=== PATIENT | female | born 1965 | race Caucasian/White ===

== ENCOUNTER 2016-11-13 17:17 | Inpatient (IN) | payer OTHER ==
[~2016-11-13] VITALS: Ht 152.4 cm; Wt 57.1 kg
[~2016-11-13 17:17] MED LIST: ACET-171 PO; ACET325T51 PO; ASCO100089 PO; CHLO25CA10 PO; ERGO500050 PO; FOLI-52 PO; LORA2TAB PO; OMEG-38 PO; ONDA4TAB9 PO; ONDA8TAB10 PO; OXYC5TAB72 PO; PANT40TA2 PO; PANT40TA3 PO
[2016-11-13 17:33] VITALS: BP 157/77; PULSE 113; RESP 30; O2SAT 96
[2016-11-13] MEDS ORDERED: 0.9% Sodium Chloride 1,000 ML IV ONE ×2 (17:47→18:21)
[2016-11-13] MEDS ORDERED: Albuterol-Ipratropium 3 mL Inhalation Solution NEB ONE (17:50)
[2016-11-13 18:01] VITALS: PULSE 110; RESP 20; O2SAT 92
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
--- NOTE | 2016-11-13 18:12 | DRSVH ---
PROCEDURE: X-RAY CHEST ONE VIEW, PORTABLE ([id number]) INDICATIONS: 51 year-old female with cough and fever. TECHNIQUE: One view of the chest was acquired. COMPARISON: [facility], CR, XR CHEST 2VW, 11/13/2016, 9:00. [facility], CR , XR CHEST 1VW (PORTABLE), 11/10/2015, 15:54. [facility], CR, CHEST 1VW, 02/03/2015, 6:43 . FINDINGS: Surgical changes and devices: Patient is status post cholecystectomy. Lungs and pleura: No pleural effusions or pneumothorax. Lungs are clear. Mediastinum: Mediastinal contours appear normal. Heart size is normal. Bones and chest wall: No suspicious bony lesions. Overlying soft tissues appear unremarkable. IMPRESSION: No acute cardiopulmonary disease. Dictated by: Griffin Alejo M.D. on 11/13/2016 at 18:10 Approved by: Griffin Alejo M.D. on 11/13/2016 at 18:10
[2016-11-13 18:15] LABS: BASOPHILS % (AUTO) 0.1 % (0-3); EOSINOPHILS % (AUTO) 0.1 % (0-5); MONOCYTES % (AUTO) 6.2 % (4-12); Mean Corpuscular Hemoglobin 32.3 pg (27.0-35.0); Platelet Count 136 bil/L (150-400)
[2016-11-13] MEDS ORDERED: Albuterol 2.5 mg/3 mL Inhalation Solution NEB ONE (18:25)
--- NOTE | 2016-11-13 18:50 | DRSVH ---
PROCEDURE: X-RAY CHEST ONE VIEW ([id number]) INDICATIONS: 51 year-old female with productive cough, hypoxia and fevers. TECHNIQUE: Lateral view of the chest was acquired. COMPARISON: [facility], CR, XR CHEST 1VW (PORTABLE), 11/13/2016, 17:51. [facility], CR, XR CHEST 2VW, 11/13/2016, 9:00. [facility], CR, XR CHEST 1VW (PORTABLE), 1 01/11/2015, 15:54. FINDINGS: Surgical changes and devices: Cholecystectomy clips are again noted. Lungs and pleura: No pleural effusions or pneumothorax. Lungs are clear. Mediastinum: Mediastinal contours appear normal. Heart size is normal. Bones and chest wall: No suspicious bony lesions. Overlying soft tissues appear unremarkable. IMPRESSION: No radiographic evidence for pneumonia. Dictated by: Griffin Alejo M.D. on 11/13/2016 at 18:48 Approved by: Griffin Alejo M.D. on 11/13/2016 at 18:48
[2016-11-13 18:59] LABS: TROPONIN T < 0.010 ug/L (0.0-0.011)
[2016-11-13 20:08] LABS: APPEARANCE,URINE CLEAR (CLEAR,HAZY); COLOR,URINE STRAW (YELLOW); OCCULT BLOOD,URINE NEGATIVE (NEGATIVE); UROBILINOGEN,URINE NORMAL (NORMAL)
[2016-11-13] MEDS ORDERED: HYDROmorphone 0.5 mg/0.5 mL iSecure Syringe IVPUSH ONE (20:15)
[2016-11-13 21:16] VITALS: BP 138/76; PULSE 93; RESP 18; O2SAT 93
[2016-11-13 21:39] VITALS: BP 132/84; PULSE 95; RESP 20; O2SAT 92
[2016-11-13] MEDS ORDERED: 0.9% Sodium Chloride 1,000 ML IV SCH (21:46)
[2016-11-13] MEDS ORDERED: Alum-Mag Hydrox-Simeth 30 mL Suspension PO PRN (21:50)
[2016-11-13] MEDS ORDERED: Polyethylene Glycol (PEG) 17 Gm Powder PO PRN (21:50)
[2016-11-13] MEDS ORDERED: Thiamine Inj 100 MG, Folic Acid Inj 1 MG, Magnesium Sulfate 50% Inj 2 GM, Multivitamins... IV ONE ×5 (22:05)
[2016-11-13] MEDS ORDERED: Thiamine Inj 100 MG in 0.9% Sodium Chloride 50 ML IM ONE (22:05)
[2016-11-13] MEDS ORDERED: Thiamine Inj 100 MG in 0.9% Sodium Chloride 100 ML IM ONE (22:40)
[2016-11-13] MEDS ORDERED: Thiamine Inj 100 MG in 0.9% Sodium Chloride 100 ML IV ONE (22:40)
[2016-11-13] MEDS: 0.9% Sodium Chloride 1,000 ML IV SCH (22:49)
[2016-11-13] MEDS: Albuterol-Ipratropium 3 mL Inhalation Solution NEB SCH (23:01)
[2016-11-13 23:03] VITALS: PULSE 94; RESP 24; O2SAT 92
[2016-11-13] MEDS: cefTRIAXone Inj 2,000 MG in IV Premix 1 EACH IV SCH (23:16)
[2016-11-13] MEDS: HYDROmorphone 0.5 mg/0.5 mL iSecure Syringe IVPUSH PRN (23:26)
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
--- NOTE | 2016-11-13 23:59 | ABG ---
DateTimeAnalyzed 23:53:00 -_ pH ____7.466 - pCO2 ___31.6__ -mmHg pO2 ___48.9__ -mmHg HCO3- ___22.5__ -mmol/L ABE ___-0.2__ -mmol/L tHb ___10.9__ -g/dL O2Hb ___83.8__ -% COHb ____1.8__ -% MetHb ____1.0__ -% sO2 ___86.2__ -% FIO2 ___30.0__ -% Drawn By MT - Date/Time Notified____ 23:58:00 -_ Liter_Flow ____3.0__ -L/min Oxygen Device 1 __CANNULA - Notified By MT - Notified Whom RN Navya - B 750 -mmHg tO2 ___12.8__ -Vol% Crow test N/A -
[2016-11-14] VITALS (14 sets, daily range): BP systolic 124–164; BP diastolic 68–96; PULSE 58–98; RESP 18–24; O2SAT 88–95
[2016-11-14 00:08] LABS: BASOPHILS % (AUTO) 0 % (0-3); EOSINOPHILS % (AUTO) 0 % (0-5); Mean Corpuscular Hemoglobin 31.4 pg (27.0-35.0); Mean Corpuscular Volume 93.6 fL (81-100); Platelet Count 107 bil/L (150-400)
[2016-11-14 00:24] LABS: INR 1.08 ratio
[2016-11-14 00:32] LABS: MONOCYTES % (AUTO) 10 % (4-12); NEUTROPHILS % (AUTO) 75 % (40-74)
[2016-11-14] MEDS: Sodium Chloride LOK Flush 10 mL Syringe IVFLUSH SCH ×3 (00:40→15:55)
[2016-11-14 00:42] LABS: Phosphorus 1.9 mg/dL (2.5-4.9); TROPONIN T 0.01 ug/L (0.0-0.011)
[2016-11-14 01:06] LABS: Magnesium 1.2 mg/dL (1.6-2.6)
[2016-11-14] MEDS ORDERED: MAG SULF IV ONE (01:20)
[2016-11-14] MEDS: Heparin 5,000 Unit/mL Inj SUBQ SCH ×3 (02:33→15:59)
[2016-11-14] MEDS: HYDROmorphone 0.5 mg/0.5 mL iSecure Syringe IVPUSH PRN ×2 (02:33→08:11)
[2016-11-14] MEDS: Azithromycin Inj 500 MG in Dextrose 5% w/Vial Mate 250 ML IV SCH ×2 (02:33→20:17)
[2016-11-14] MEDS: MethylprednisoLONE Sodium Succinate 40 mg/mL Inj IVPUSH SCH ×2 (02:33→10:19)
[2016-11-14] MEDS: Albuterol-Ipratropium 3 mL Inhalation Solution NEB SCH ×5 (03:54→20:59)
--- NOTE | 2016-11-14 04:54 | NUR ---
Patient [place] [facility] [place] 2245 alert and orientedx4 able to make needs known, states pain is 8/10. Dilaudid and Toradol in ER were slightly ineffective. IVF infusing. patient coughing thick lewis,green sputum up. lungs sound coarse throughout. patient on 2L via NC. MD notified of patient pain. MD ordered Dilaudid IV. RT up to give patient neb treatment. Patient was given 0.5mg IV Dilaudid. patient reports pain medication slightly effective. admissions assessment completed. Patient reports last drink was September 27. Patient CIWA 1 at this time. Patient reports recent deaths in family and is requesting grieving counselor if possible. note left for social work therapist. will continue to monitor.
[2016-11-14] MEDS: 0.9% Sodium Chloride 1,000 ML IV SCH ×3 (08:00→20:15)
[2016-11-14] MEDS: Multivit-Miner-Folic Acid-Iron Tablet PO SCH (09:01)
--- NOTE | 2016-11-14 09:26 | DRSVH ---
PROCEDURE: X-RAY CHEST, TWO VIEWS ([id number]) INDICATIONS: possible pneumonia TECHNIQUE: 2 views of the chest were acquired. COMPARISON: [facility], CR, XR CHEST 2VW, 11/13/2016, 9:00. FINDINGS: Surgical changes and devices: None. Lungs and pleura: No pneumothorax. Trace right-sided pleural fluid collections noted. Focal air spac e opacities have developed in the right upper lobe, right middle lobe and left lower lobe most compat ible with pneumonia. Mediastinum: Mediastinal contours are normal. Heart size is normal. Bones and chest wall: No suspicious bony abnormalities. Soft tissues appear unremarkable. IMPRESSION: Bilateral pneumonia. Dictated by: Carole Gibson MD, PhD on 11/14/2016 at 9:24 Approved by: Carole Gibson MD, PhD on 11/14/2016 at 9:24
[2016-11-14] MEDS ORDERED: HYDROcodone-APAP 5-325 mg Tablet PO PRN (12:05)
--- NOTE | 2016-11-14 15:00 | PCM.PNMED ---
Subjective Date of Service Nov 14, 2016 Subjective Feeling about the same today. Still short of breath and requiring oxygen. No chest pain, nausea vomiting, diarrhea or constipation. Exam Vital Signs Vital Sign - Last Date Time Temp Pulse Resp B/P Pulse Ox O2 Delivery O2 Flow Rate FiO2 11/14/16 13:05 98 18 88 Room Air 11/14/16 12:49 37.2 164/96 2.00 Intake and Output 11/13/16 11/13/16 11/14/16 Cumulative From/Thru 15:00 23:00 07:00 11/13/16 17:33 - 11/14/16 06:30 Intake Total 2000 ml 300 ml 2300 ml Output Total 450 ml 450 ml Balance 2000 ml -150 ml 1850 ml Intake Oral 300 ml 300 ml IV Total 2000 ml 2000 ml Output Urine Total 450 ml 450 ml Exam General: Alert, Oriented X3, NAD Head: Normocephalic, atraumatic Eyes: LAURA, EOMI, no scleral Icterus Chest: Coarse breath sounds noted throughout. Heart: Regular rate and rhythm. Normal S1, S2, no murmurs noted Abdomen: soft, non-tender. Bowel sounds are normoactive. No guarding or rebound. Extremities: no cyanosis, clubbing or edema. IVs and Medications Medications Reviewed: Medications were reviewed in detail Lab and Diagnostics Result Diagram: 11/13/16234911/13/162349 Microbiology RUN DATE: 11/13/16 [facility] LAB LIVE PAGE 1 RUN TIME: 1856 Specimen Inquiry PHYSICIAN Name: MALICK SUAREZ Age/Sex: 51/F Attend Dr: Georgi Higgins DO Acct: [id number] Unit: [id number] Status: REG ER Location: SED Re11/13/16 Disch: Specimen: [id number] Collected: 11/13/16 Status: COMP Req#: [id number] Received: 11/13/16 Source: NOSE Sp Desc : Subm Dr: Milton Jones MD Ordered: RAPID FLU IRS Comments: Collected by Nurse/Unit? Y/N Y Procedure Result Verified Site Microbiology JUAN INFLUENZA RAPID AG SCREEN Final 11/13/16 RESULT POSITIVE FOR FLU A NEGATIVE FOR FLU B TIME CALLED: 1852 FLOOR/DOCTOR: TRENA X-Rays, CTs and MRIs Patient Name: MAILCK SUAREZ MR#: [id number] Location: SED Ordering Phys: Georgi Higgins DO Date of Service: 11/13/161818 PROCEDURE: X-RAY CHEST ONE VIEW ([id number]) IMPRESSION: No radiographic evidence for pneumonia. Dictated by: Griffin Alejo M.D. on 11/13/2016 at 18:48 Approved by: Griffin Alejo M.D. on 11/13/2016 at 18:48 CXR 11/14/2016 IMPRESSION: Bilateral pneumonia. Dictated by: Carole Gibson MD, PhD on 11/14/2016 at 9:24 Approved by: Carole Gibson MD, PhD on 11/14/2016 at 9:24 12-lead ECG Sinus rhythm at a rate of 102 with possible left atrial enlargement Assessment & Plan #Pneumonia -Repeat chest x-ray consistent with bilateral pneumonia. -azithromycin and IV Rocephin, sputum cultures pending -DuoNeb nebs every 4 hours and albuterol nebs when necessary -Was started on Solu-Medrol, no wheezing noted on today's exam. We will discontinue steroids. Restart if indicated # Influenza A with significant respiratory symptoms including acute hypoxia, acute, present on admission -Continue Tamiflu 75 mg by mouth twice a day # Sepsis secondary to respiratory source, acute, present on admission -Patient meets criteria by being tachycardic along with having significantly elevated white count of 19.3. -We will cover for influenza A with Tamiflu along with IV azithromycin and IV Rocephin for pneumonia. # Alcohol withdrawal, acute, present on admission -States that she has not drank since September -She is on CIWA protocol # Abnormal liver enzymes, present on admission, appears to be acute -Most likely secondary to EtOH abuse -We will monitor. # DVT prophylaxis -Subcutaneous heparin # CODE STATUS -Patient is full code GI Prophylaxis: H2 kathy VTE Prophylaxis: Sub-Q Heparin (Unfractionated) VTE Mechanical Devices: Intermittant Pneumatic CD Resuscitation Status: CPR: Attempt Resuscitation Mynor Garcia DO Nov 14, 2016 15:00
--- NOTE | 2016-11-14 16:31 | NUR ---
Social Work-screening: Data:Pt is a 51 y/o female who was admitted on 11/13/16 for influenza A per H&P. Pt's insurance is [facility] and PCP is ISIDRO Rasheed. EMR Reviewed. Pt's readmission score is 4-high risk. Pt resides at home where she remains independent with ADLS. SW to follow up with pt when more appropriate to complete CD assessment. Pt is currently on CIWA protocol. No anticipated discharge needs.SW will continue to follow. Assessment:Pt who is independent at baseline. Plan:Pt to discharge home when medically stable via POV. SW to follow up with pt when more appropriate to complete CD assessment. SW will continue to follow. DOMENIC Higuera
--- NOTE | 2016-11-14 18:49 | NUR ---
Pain Pt c/o pain of 7 or 8/10 in back and lungs. Pt continued to report these numbers despite administration of different pain medications.
[2016-11-14] MEDS: Ondansetron 2 mg/mL 2 mL Inj IVPUSH PRN (21:27)
[2016-11-15] VITALS (17 sets, daily range): BP systolic 143–173; BP diastolic 80–98; PULSE 66–97; RESP 18–26; O2SAT 88–98
[2016-11-15] MEDS: Heparin 5,000 Unit/mL Inj SUBQ SCH ×3 (00:05→16:24)
[2016-11-15] MEDS: cefTRIAXone Inj 2,000 MG in IV Premix 1 EACH IV SCH ×2 (00:05→23:40)
[2016-11-15] MEDS: Sodium Chloride LOK Flush 10 mL Syringe IVFLUSH SCH ×3 (00:06→16:24)
[2016-11-15] MEDS: Albuterol-Ipratropium 3 mL Inhalation Solution NEB SCH ×6 (00:30→21:14)
[2016-11-15] MEDS: Albuterol 2.5 mg/3 mL Inhalation Solution NEB PRN (01:48)
--- NOTE | 2016-11-15 01:54 | NUR ---
Oxygen: Pt has been on 2L NC maintaining sats in the mid 90s thus far this shift. Pt took the oxygen off and got up to the bathroom independently. Staff was in room upon her return to bed and found pt's sats to be 85%, placing the oxygen cannula back on pt. Oxygen was increased to 3L. Pt stated not feeling short of breath, RN recommended a neb treatment, pt did not think it was necessary but agreed. Receiving a treatment at this time. Addendum: 11/15/16 at 0241 by FRANCINE PRETTY RN Sats continue to be low to med 80s after treatment. Placed on oximask at 10L to brings sats up to 95%. Then decreased to 7L, CPOX in place for continuous monitoring with sats 88-89%. Night resident is on the unit and was informed of pt's condition. Will stop by to see pt prior to leaving unit. Addendum: 11/15/16 at 0320 by FRANCINE PRETTY RN ABGs and chest x-ray ordered. Addendum: 11/15/16 at 0401 by FRANCINE PRETTY RN Pt will be transferring to [facility] for high flow oxygen.
--- NOTE | 2016-11-15 03:45 | ABG ---
DateTimeAnalyzed 03:38:00 -_ pH ____7.446 - 7.350 7.450 pCO2 ___38.5__ -mmHg 35.0 45.0 pO2 ___46.3__ -mmHg 69.0 116 HCO3- ___26.2__ -mmol/L 22.0 26.0 ABE ____2.5__ -mmol/L -2.0 2.0 tHb ___11.0__ -g/dL O2Hb ___82.0__ -% COHb ____0.9__ -% MetHb ____0.9__ -% sO2 ___83.5__ -% FIO2 ___40.0__ -% Drawn By MT - Date/Time Notified____ 03:44:00 -_ Liter_Flow ____8.0__ -L/min Oxygen Device 1 SIMP MASK - Notified By MT - Notified Whom DR gatzke - B 754 -mmHg tO2 ___12.6__ -Vol% Crow test _Positive -
[2016-11-15] MEDS ORDERED: Furosemide 10 mg/mL 2 mL Inj IVPUSH ONE (04:30)
--- NOTE | 2016-11-15 04:40 | PCM.PNMED ---
Subjective Date of Service Nov 15, 2016 Subjective SHORT UPDATED NOTE Exam Vital Signs Vital Sign - Last Date Time Temp Pulse Resp B/P Pulse Ox O2 Delivery O2 Flow Rate FiO2 11/15/16 03:59 66 18 88 OxyMask 8.00 11/15/16 01:32 37.1 147/80 Intake and Output 11/14/16 11/14/16 11/15/16 Cumulative From/Thru 15:00 23:00 07:00 11/13/16 17:33 - 11/14/16 18:40 Intake Total 4228 ml 6528 ml Output Total 650 ml 1100 ml Balance 3578 ml 5428 ml Intake Oral 1100 ml 1400 ml IV Total 3128 ml 5128 ml Output Urine Total 650 ml 1100 ml # Bowel Movements 1 1 Lab and Diagnostics Result Diagram: 11/13/16234911/13/162349 Microbiology RUN DATE: 11/13/16 [facility] LAB LIVE PAGE 1 RUN TIME: 1855 Specimen Inquiry PHYSICIAN Name: ERICKMALICK Age/Sex: 51/F Attend Dr: Georgi Higgins DO Acct: [id number] Unit: [id number] Status: REG ER Location: SED Re11/13/16 Disch: Specimen: [id number] Collected: 11/13/16 Status: COMP Req#: [id number] Received: 11/13/16 Source: NOSE Sp Desc : Subm Dr: Milton Jones MD Ordered: RAPID FLU IRS Comments: Collected by Nurse/Unit? Y/N Y Procedure Result Verified Site Microbiology JUAN INFLUENZA RAPID AG SCREEN Final 11/13/16-1855 RESULT POSITIVE FOR FLU A NEGATIVE FOR FLU B TIME CALLED: 185 FLOOR/DOCTOR: TRENA X-Rays, CTs and MRIs Patient Name: MALICK SUAREZ MR#: [id number] Location: [facility] Phys: Georgi Higgins DO Date of Service: 11/13/161818 PROCEDURE: X-RAY CHEST ONE VIEW ([id number]) IMPRESSION: No radiographic evidence for pneumonia. Dictated by: Griffin Alejo M.D. on 11/13/2016 at 18:48 Approved by: Griffin Alejo M.D. on 11/13/2016 at 18:48 CXR 11/14/2016 IMPRESSION: Bilateral pneumonia. Dictated by: Carole Gibson MD, PhD on 11/14/2016 at 9:24 Approved by: Carole Gibson MD, PhD on 11/14/2016 at 9:24 12-lead ECG Sinus rhythm at a rate of 102 with possible left atrial enlargement Assessment & Plan QUICK UPDATED NOTE: Patient was on 2 L by NC. Up to bathroom, but when returned to bed, required 7 L by mask to bring O2 to 88%. Went on for several minutes. Duo Nebs x2. ABG showed abnormal PO2 at 40ish but everything else normal. After 20 minutes, still needing 5 L by mask for O2 of 88% to 90%. Repeat x-ray -- possibly fluid overload? Moved to second floor for high-flow oxygen. Discontinued fluids (has received several liters). Gave 20mg furosemide IV. Wells score 0. Ordered D- dimer. Patient complaining of SOB. Lungs had loud crackles, wheezing, rhonchi B/ L. Using accessory muscles somewhat but speaking in full sentences. . GI Prophylaxis: H2 kathy VTE Prophylaxis: Sub-Q Heparin (Unfractionated) VTE Mechanical Devices: Intermittant Pneumatic CD Resuscitation Status: CPR: Attempt Resuscitation Monica Quintero DO Nov 15, 2016 04:40
--- NOTE | 2016-11-15 04:42 | NUR ---
Transfer: Pt transferred to [facility], report given to DARELL Alvarez. Belongings with pt. Pt on 10L oxymask at transfer with sats 87-89%.
[2016-11-15] MEDS: Ondansetron 2 mg/mL 2 mL Inj IVPUSH PRN ×3 (05:05→23:53)
[2016-11-15 05:31] LABS: BASOPHILS % (AUTO) 0.1 % (0-3); EOSINOPHILS % (AUTO) 0.3 % (0-5); MONOCYTES % (AUTO) 9.3 % (4-12); Mean Corpuscular Hemoglobin 30.9 pg (27.0-35.0); Mean Corpuscular Volume 93.7 fL (81-100); NEUTROPHILS % (AUTO) 82.1 % (40-74); Platelet Count 120 bil/L (150-400)
--- NOTE | 2016-11-15 06:15 | NUR ---
Respiratory Distress Pt transferred [place] [facility] r/t respiratory distress. Pt arrived via hospital bed on 10 L O2 via Oxymask, with SpO2 sats only in the upper 80s. RT placed Pt on O2 High-Flow at 30 L with 50%, SpO2 sats improved to 93-96% per continuous pulse oximetry. Care ongoing.
--- NOTE | 2016-11-15 07:14 | DRSVH ---
PROCEDURE: X-RAY CHEST ONE VIEW, PORTABLE ([id number]) INDICATIONS: 51 year-old female with shortness of breath. TECHNIQUE: One view of the chest was acquired. COMPARISON: [facility], CR, XR CHEST 2VW, 11/14/2016, 8:15. [facility], CR, XR CHEST 1VW, 11/13/2016, 18:27. [facility], CR, XR CHEST 1VW (PORTABLE), 11/13/2016, 17 :51. FINDINGS: Surgical changes and devices: None. Lungs and pleura: No pleural effusions or pneumothorax. Multifocal air space opacities have increase d in the right upper lobe, right lung base, lingula, and bilateral perihilar regions. Mediastinum: Mediastinal contours appear normal. Heart size is normal. Bones and chest wall: No suspicious bony lesions. Overlying soft tissues appear unremarkable. IMPRESSION: Increasing bilateral bronchopneumonia. Dictated by: Griffin Alejo M.D. on 11/15/2016 at 7:12 Approved by: Griffin Alejo M.D. on 11/15/2016 at 7:12
[2016-11-15] MEDS: Multivit-Miner-Folic Acid-Iron Tablet PO SCH (08:56)
[2016-11-15] MEDS ORDERED: MethylprednisoLONE Sodium Succinate 40 mg/mL Inj IM ONE (09:15)
--- NOTE | 2016-11-15 13:23 | NUR ---
Respiratory and CIWA Pt. is currently on high flow O2 (30L/min, FiO2 50%). She is able to speak in full sentences. She is able to transfer [place] [facility] with [facility]. She experiences SOBOE easily. Lung sounds are coarse with rhonchi. She C/O back pain and pleuritic pain which she asked the doctor for PRN Dilaudid IV instead of PRN PO Roxicodone. Doctor explained that she should use oral analgesics. Pt. was cooperative an agreed. CIWA scores 2 to 6. Bilateral tremor of arms was more noticeable after Nebulizer treatment. She denied A/V/T hallucination.
--- NOTE | 2016-11-15 15:22 | DRSVH ---
PROCEDURE: X-RAY CHEST ONE VIEW, PORTABLE ([id number]) INDICATIONS: 51 year-old female with shortness of breath. TECHNIQUE: One view of the chest was acquired. COMPARISON: [facility], CR, XR CHEST 1VW (PORTABLE), 11/15/2016, 3:13. [facility], CR, XR CHEST 2VW, 11/14/2016, 8:15. [facility], CR, XR CHEST 1VW (PORTABLE), 11/13, 17:51. FINDINGS: Surgical changes and devices: None. Lungs and pleura: No pleural effusions or pneumothorax. There is continued interval increase in wide spread bilateral airspace opacities. There is trace dependent left pleural fluid now apparent. No pne umothorax. Mediastinum: Mediastinal contours appear normal. Heart size is normal. Bones and chest wall: No suspicious bony lesions. Overlying soft tissues appear unremarkable. IMPRESSION: Continued interval increase in widespread bilateral bronchopneumonia. Dictated by: Griffin Alejo M.D. on 11/15/2016 at 15:20 Approved by: Griffin Alejo M.D. on 11/15/2016 at 15:20
--- NOTE | 2016-11-15 17:08 | NUR ---
Hypertensive BP been high with SBP 150s-170s. Dr. Keita was made aware.
[2016-11-15] MEDS ORDERED: Glucose 40% Oral Gel 15 Gm Tube PO PRN (18:15)
--- NOTE | 2016-11-15 18:44 | PCM.PNMED ---
Subjective Date of Service Nov 15, 2016 Subjective This is a 51-year-old female who does have a history of smoking but no previous respiratory issues who presents with 4 days of shortness of breath cough along with fevers and chills at home. She was seen in the urgent care earlier this morning and was told she had a negative influenza test. Apparently they thought was a false negative so she was given Tamiflu prednisone and albuterol. However her symptoms worsened and she presented to the emergency room this evening. Her evaluation in the emergency room does include a positive influenza PCR test. Chest x-ray did not reveal any acute infiltrates. She was found to have an elevated white count of 19.3 with 91% polys 2% lymphs. She was also found to have a low sodium of 129, lactic acid level of 1.7. Protein was less than 0.010. She was tachycardic sinus in the emergency room to 113. He was also found to be hypoxic and required 4 L nasal cannula to maintain an O2 sat of 96%. Patient notes that she quit smoking 40 days ago as she thought it was about time to do so. She was not having any symptoms at that time. Also of note she does drink about a fifth of vodka over a period of a week. Currently she is requiring 10 L High Flow to maintain sats. Overnight events: Patient was on 2 L by NC. Up to bathroom, but when returned to bed, required 7 L by mask to bring O2 to 88%. Went on for several minutes. Duo Nebs x2. ABG showed abnormal PO2 at 40ish but everything else normal. After 20 minutes, still needing 5 L by mask for O2 of 88% to 90%. Repeat x-ray -- possibly fluid overload? Moved to second floor for high-flow oxygen. Discontinued fluids (has received several liters). Gave 20mg furosemide IV. Wells score 0. Ordered D-dimer. Patient complaining of SOB. Lungs had loud crackles, wheezing, rhonchi B/L. Using accessory muscles somewhat but speaking in full sentences. Today Ms. Martha Calderon was lying comfortably in bed with high flow O2 in place and effectively managing O2 needs. She denies headache, dizziness, sore throat, chest pain, abdominal pain, nausea, vomiting, constipation, and diarrhea. She is voiding and eliminating without difficulty. She reports painful cough with deep inhalation. Exam Vital Signs Vital Sign - Last Date Time Temp Pulse Resp B/P Pulse Ox O2 Delivery O2 Flow Rate FiO2 11/15/16 12:41 77 18 96 highflow 50 11/15/16 11:54 37.4 153/94 11/15/16 08:41 30 Intake and Output 11/14/16 11/14/16 11/15/16 Cumulative From/Thru 15:00 23:00 07:00 11/13/16 17:33 - 11/15/16 06:20 Intake Total 4228 ml 1450 ml 7978 ml Output Total 650 ml 500 ml 1600 ml Balance 3578 ml 950 ml 6378 ml Intake Oral 1100 ml 0 ml 1400 ml IV Total 3128 ml 1450 ml 6578 ml Output Urine Total 650 ml 500 ml 1600 ml # Voids 2 2 # Bowel Movements 1 1 2 Exam General: Middle aged lady lying in bed with acute distress controlled with High flow O2, well-developed, well-nourished, appropriately interactive HEENT: Normocephalic, atraumatic. External ears without defect. Pupils equal, round, and reactive to light and accommodation. Anicteric sclerae, moist conjunctivae, and no lid lag. Oropharynx free of erythema and cobble stoning with moist mucosa. Neck: Supple with full range of motion. No jugular venous distension. No bruits. No lymphadenopathy or thyromegaly. Cardiovascular: Regular rate and rhythm with no murmurs, rubs, or gallops appreciated Pulmonary: Diffuse prominent fine crackles, without wheezes, or rhonchi. Abnormal respiratory effort with no use of accessory muscles. Abdomen: Bowel tones present. Soft, nontender, nondistended. No hepatosplenomegaly or masses appreciated. Extremities: No clubbing, cyanosis, edema, or lymphadenopathy appreciated. Skin: Normal temperature, turgor, and texture; no rash, ulcers, or subcutaneous nodules appreciated. Neurological: Cranial nerves grossly intact. Normal muscle strength, tone, and bulk. Reflexes, coordination, and sensory function within normal limits. No known gait impairment. Psychiatric: Normal mood and affect. Alert and oriented to person, place, and time. IVs and Medications Medications Reviewed: Medications were reviewed in detail Lab and Diagnostics Result Diagram: 11/15/16 0500 11/15/16 0500 X-Rays, CTs and MRIs X-RAY CHEST ONE VIEW IMPRESSION: No radiographic evidence for pneumonia. Dictated by: Griffin Alejo M.D. on 11/13/2016 at 18:48 X-RAY CHEST ONE VIEW IMPRESSION: Bilateral pneumonia. Dictated by: Carole Gibson MD, PhD on 11/14/2016 at 9:24 12-lead ECG Sinus rhythm at a rate of 102 with possible left atrial enlargement Additional Diagnostics [facility] DateTimeAnalyzed 03:38:00 -_ pH ____7.446 - 7.350 7.450 pCO2 ___38.5__ -mmHg 35.0 45.0 pO2 ___46.3__ -mmHg 69.0 116 HCO3- ___26.2__ -mmol/L 22.0 26.0 Assessment & Plan This is a 51-year-old female who does have a history of smoking but no previous respiratory issues who presents with 4 days of shortness of breath cough along with fevers and chills at home. Her evaluation in the emergency room does include a positive influenza PCR test. Chest x-ray did not reveal any acute infiltrates. She was found to have an elevated white count of 19.3 with 91% polys 2% lymphs. She was also found to have a low sodium of 129, lactic acid level of 1.7. Currently she is requiring 10 L High Flow to maintain sats. 1. ARDS, present on admission. Active. - Possibly underlying COPD exacerbation 2nd to Influenza. - Daily CXR. - Bilateral pulmonary infiltrates. - PO2/FiO2 - 109 = Moderate - ECHO tomorrow to r/o cardiac sources. - High Flow O2 at 10 L. - Pulmonary to be consulted, time and recommendations appreciated. 2. Influenza A with significant respiratory symptoms including acute hypoxia, acute, present on admission - Rapid Influenza screen positive. - Tamiflu 75mgj BID x 5 days. last dose (11/17/15) - Respiratory Viral PCR pending. 3. Superimposed Pneumonia, present on admission, Active. - Procalcitonin - 0.26 on admission, currently 0.37 - Sputum cultures pending. - MRSA screen pending. - Strep pneumo ag, Legionella pneu ab pending. - Azithromycin and IV Rocephin daily for now. - DuoNeb nebs every 4 hours and albuterol nebs when necessary - Solu-Medrol 40 mg daily. 4. Sepsis, present on admission, Active. - Likely 2nd to respiratory source, - On admission criteria met:Tachycardic, tachypneic, Leukocytic 19.3. - Treatment per above. 5. Acute hypoxic respiratory failure, present on admission. Active. - Possibly underlying COPD exacerbation 2nd to Influenza. - Continue to treat per above with high flow O2. - ABGs per above. 6. Alcohol withdrawal, acute, present on admission -States that she has not drank since September -She is on CIWA protocol as needed. 7. Abnormal liver enzymes, present on admission, appears to be acute -Most likely secondary to EtOH abuse -We will monitor. Acetaminophen for mild pain when necessary. Bowel regimen Senna and MiraLAX scheduled and PRN. Zofran when necessary for nausea and vomiting. SubQ heparin for now. SCDs in place. High risk medications: Disposition: Likely here for > 2 days due to ARDS and respiratory failure. Pain Evaluation: Adequate Pain Control GI Prophylaxis: H2 kathy VTE Prophylaxis: Sub-Q Heparin (Unfractionated) VTE Mechanical Devices: Intermittant Pneumatic CD Resuscitation Status: CPR: Attempt Resuscitation Attending Statement The patient was seen and examined together with Dr. Alexander on 11-15-16 and I agree with the history, exam and plan as outlined in the note above. Patient is currently on IV diazepam prn for possible etoh withdrawal. NATASHA ALEXANDER DO Nov 15, 2016 13:52 Regina Smith MD Nov 16, 2016 16:49
[2016-11-15] MEDS ORDERED: Potassium Chloride 20 mEq SR Tablet PO ONE (21:45)
[2016-11-15] MEDS: Insulin LISPRO 300 Unit/3 mL Inj SUBQ SCH (23:56)
[2016-11-16] VITALS (16 sets, daily range): BP systolic 131–157; BP diastolic 81–90; PULSE 70–103; RESP 20–24; O2SAT 91–95
[2016-11-16] MEDS: Sodium Chloride LOK Flush 10 mL Syringe IVFLUSH SCH ×4 (00:30→23:01)
[2016-11-16] MEDS: Heparin 5,000 Unit/mL Inj SUBQ SCH ×4 (00:31→23:05)
--- NOTE | 2016-11-16 02:10 | NUR ---
Transferred Moved to room 2023 [facility], alert and oriented times 3, CIWA 6, noted tremors, O2 high Flow 30L/50%, persistent dry cough, sputum spec needed pt informed, spec cup at bedside.
[2016-11-16 05:36] LABS: BASOPHILS % (AUTO) 0.1 % (0-3); EOSINOPHILS % (AUTO) 0 % (0-5); MONOCYTES % (AUTO) 12.6 % (4-12); Mean Corpuscular Hemoglobin 31.7 pg (27.0-35.0); NEUTROPHILS % (AUTO) 76.7 % (40-74); Platelet Count 167 bil/L (150-400)
[2016-11-16] MEDS ORDERED: Potassium Chloride Oral 20 mEq SR Tab(K 3 - 3.7 & Creat < 2) PO ONE (05:45)
--- NOTE | 2016-11-16 06:09 | NUR ---
Respiratory: PT remains on high flow 30L/ 50%. Sp02 mid 90s. monitored via AREA MANAGER. Sputum cup at bedside. PT has moist cough but reports it being non-productive at this time. CIWA score <5.
[2016-11-16] MEDS: Ondansetron 2 mg/mL 2 mL Inj IVPUSH PRN ×2 (06:40→21:18)
[2016-11-16] MEDS: Albuterol-Ipratropium 3 mL Inhalation Solution NEB SCH ×4 (07:53→20:39)
[2016-11-16] MEDS: Insulin LISPRO 300 Unit/3 mL Inj SUBQ SCH ×5 (08:00→22:58)
--- NOTE | 2016-11-16 08:53 | DRSVH ---
PROCEDURE: X-RAY CHEST ONE VIEW, PORTABLE ([id number]) INDICATIONS: respiratory failure TECHNIQUE: One view of the chest was acquired. COMPARISON: [facility], CR, XR CHEST 1VW (PORTABLE), 11/15/2016, 14:45. [facility], [facility], XR CHEST 1VW (PORTABLE), 11/15/2016, 3:13. [facility], CR, XR CHEST 1VW (PORT ABLE), 11/13/2016, 17:51. FINDINGS: Surgical changes and devices: None. Lungs and pleura: No pleural effusions or pneumothorax. There is decreased, moderate patchy bilatera l multifocal airspace opacities. Mediastinum: Mediastinal contours appear normal. Heart size is normal. Bones and chest wall: No suspicious bony lesions. Overlying soft tissues appear unremarkable. IMPRESSION: Resolving multifocal pneumonia. Dictated by: Randall Potter M.D. on 11/16/2016 at 8:51 Approved by: Randall Potter M.D. on 11/16/2016 at 8:51
--- NOTE | 2016-11-16 09:00 | DRSVH ---
PROCEDURE: CT ANGIO CHEST PULMONARY EMBOLISM ([id number]) INDICATIONS: respiratory failure TECHNIQUE: After the administration of intravenous contrast, 2 mm thick sections acquired from the pulmonary api maury to the posterior costophrenic angles. 3-dimensional maximum intensity projection (MIP) coronal a nd sagittal reformats were then acquired through the thorax. For radiation dose reduction, the follo wing was used: automated exposure control, adjustment of mA and/or kV according to patient size. COMPARISON: [facility], CT, CT ABD PELVIS W CON, 09/14/2016, 17:59. Rona Sifuentes, MR, MR LUMBAR SPINE WO CON, 04/15/2016, 10:17. [facility], CT, CT ANGIO CHEST PE, 015, 17:46. FINDINGS: Image quality: Excellent. Pulmonary arteries: Pulmonary arteries are normal in size, and demonstrate no intraluminal filling d efects to suggest central pulmonary embolism. Lungs and pleura: Patchy airspace opacities are present throughout both lungs most confluent at the r ight apex. There is small bilateral low density pleural effusions. No pneumothorax. These findings ar e new when compared with the CT dated 09/14/16. Mediastinum: Heart size is normal, without pericardial effusion. No mediastinal or hilar adenopathy . Thoracic aorta is normal in caliber and enhancement. Scattered atheromatous calcifications are pre sent within the aortic arch. Esophagus is normal in caliber, without hiatal hernia. Bones and chest wall: No suspicious bony lesions. Ribs and thoracic spine appear intact throughout. Thyroid gland is unremarkable. No axillary or supraclavicular adenopathy. Abdomen: Visualized upper abdominal solid organs appear normal in the early arterial phase of enhanc ement. IMPRESSION: 1. No acute pulmonary embolus. 2. Diffuse patchy pulmonary opacities most confluent at the right apex. Differential considerations i nclude multifocal pneumonia versus aspiration. 3. Small bilateral pleural effusions, likely reactive/infectious in nature. Short interval followup is recommended with resolution of the patient's symptoms to ensure there is n o underlying pulmonary neoplasm. Dictated by: Miranda Kramer M.D. on 11/16/2016 at 8:58 Approved by: Miranda Kramer M.D. on 11/16/2016 at 8:58
[2016-11-16] MEDS: predniSONE 20 mg Tablet PO SCH (09:54)
[2016-11-16] MEDS: Multivit-Miner-Folic Acid-Iron Tablet PO SCH (09:54)
--- NOTE | 2016-11-16 12:09 | DRSVH ---
[facility] [address] [place] [address] Echocardiogram Report Name: MALICK SUAREZ Date: 11/16/2016 Height: 60 in Hospital Exam Location: [facility] Weight: 133 lb Gender: Female BSA: 1.6 m2 : 1965 Age: 51 yrs BP: 157/87 mmHg Reason For Study: SOB Ordering Physician: HOSPITALIST SVHPerformed By: Shyann Brown Referring Physician: ISIDRO Elam Interpretation Summary The left ventricle is normal in size. The ejection fraction is estimated to be 60-65%. The right ventricle is normal in size and function. No significant valvular pathology seen. Procedure: A two-dimensional transthoracic echocardiogram with color flow and Doppler was performed. The study quality was technically adequate. There is no prior echocardiogram noted for this patient. The patient was in normal sinus rhythm during the exam. Left Ventricle: The left ventricle is normal in size. Proximal septal thickening is noted. There is no echo evidence for significant left ventricular outflow tract obstruction. The ejection fraction is estimated to be 60-65%. There are no focal wall motion abnormalities. Spectral Doppler of the mitral valve shows a normal E/A wave ratio. Right Ventricle: The right ventricle is normal in size and function. Atria: The left atrium is moderately dilated. Right atrial size is normal. There is no Doppler evidence for an atrial septal defect. Mitral Valve: There is systolic anterior motion of the chordal apparatus. There is trace mitral regurgitation. Aortic Valve: The aortic valve is trileaflet. The aortic valve opens well. There is no aortic valve stenosis. No aortic regurgitation is present. Tricuspid Valve: The tricuspid valve leaflets are thin and pliable. There is trace tricuspid regurgitation. The right ventricular systolic pressure is estimated at 30 mmHg assuming a right atrial pressure of 3 mm Hg. Pulmonic Valve: The pulmonic valve is not well seen, but is grossly normal. There is no pulmonic valvular regurgitation. Great Vessels: The aortic root is normal size. The ascending aorta is mildly enlarged. The pulmonary artery is normal size. The IVC is of normal diameter and collapses greater than 50% with a sniff. This suggests a low right atrial pressure of 3 mm Hg. Pericardium/ Pleura There is no pericardial effusion. There is an anterior echo-free space consistent with a fat pad. MMode/2D Measurements & Calculations LVIDd: 4.9 cm LA dimension: 4.4 cm RA long axis LVOT diam: 2.1 cm LVIDs: 3.2 cm AoV Openin.4 cm FS: 35.3 % LA A2 area: 23.4 cm RA area Ao root diam: 3.6 cm EPSS: 0.13 cm LA A4 area: 21.8 cm asc Aorta Diam IVSd: 0.94 cm LA length (vol) : 15.2 cm LVPWd: 0.90 cm RA vol Ao Arch Diam LA vol: 81.0 ml : 41.8 ml (Proximal trans.) LA vol index RA : 26.6 mm/ : 51.6 ml/m2 RVDd major RVDd minor : 2.6 cm LV jara. diameter/BSALV sys. diameter/BSA (cm/m^2): 3.1 (cm/m^2): 2.0 Doppler Measurements & Calculations Ao V2 max MV E max byron MV E/A: 1.7 TR max byron : 119.3 cm/sec : 96.4 cm/sec Med Peak E' Byron : 257.3 cm/sec Ao max PG MV A max byron TR max PG : 5.7 mmHg : 56.9 cm/sec E/E' med: 15.6 : 26.5 mmHg Ao mean PG MV P1/2t: 43.1 msec Pulm A Revs Dur PA V2 max : 97.6 cm/sec LVOT Max Byron MV A dur: 0.10 sec PA mean PG : 97.0 cm/sec KSENIA(I,D): 3.0 cm PA Accel Time sev ratio : 0.10 sec MV dec time MV P1/2t max byron Ao V2 mean LV V1 max PG : 0.14 sec : 85.4 cm/sec Ao V2 VTI: 23.7 cm LV V1 VTI MVA(P1/2t): 5.1 cm2 : 20.3 cm KSENIA(V,D): 2.9 cm2 PA V2 mean KSENIA indexed to BSA Pulm A Revs Dur - MV A : 61.3 cm/sec (cm^2/m^2): 1.9 Dur: -0.00 msec Reading Physician:EMMANUELLE
--- NOTE | 2016-11-16 16:42 | CONS ---
[address] [address] CONSULTATION REPORT PATIENT: MALICK SUAREZ : 1965 MR#: [id number] ADMIT: 11/13/2016 JOB ID: [id number] DATE OF SERVICE: 11/16/2016 REQUESTING PHYSICIAN: Khang Keita D.O. REASON FOR CONSULTATION: Worsening influenza with complicating staphylococcal pneumonia. DATE OF SERVICE: A 51-year-old, female, in good health who developed some shortness of breath 3-4 days prior to admission. She states that she had been feeling well. She then developed shortness of breath followed by cough, myalgias, sore throat, loss of appetite. Also noted chills and sweats. Subsequently, went to the [facility] early the morning of admission and in spite of a negative influenza test was treated with Tamiflu, prednisone and albuterol. However, her shortness of breath continued to worsen and she presented to the emergency department. There, influenza screen was positive for influenza A. Chest x-ray was reported to be normal. SMOKING HISTORY: The patient smoked three or four cigarettes a day for a number of years. Quit October 08 on her sister's birthday. ALCOHOL USE: The patient previously had discontinued drinking vodka. REVIEW OF SYSTEMS: No underlying cardiac problems. No diabetes mellitus. Does not get frequent infections. Is rarely ill. MEDICATIONS ON ADMISSION: 1. Vitamin C. 2. Vitamin D. 3. Lorazepam. 4. Multivitamin with iron and folate. 5. Protonix. ALLERGIES: PENICILLIN causes her throat to swell shut. PAST MEDICAL HISTORY: 1. Hypertension. 2. History of alcoholic pancreatitis and alcoholic hepatitis. 3. GERD. SOCIAL HISTORY: The patient lives with a roommate. Roommate is in good health. Has no underlying medical problems. Does not use aspirin chronically. OBJECTIVE: Temperature 36.7, T-max the past 24 hours is 37.4, pulse 70, respiratory rate low 20s, blood pressure 151/82. O2 sat on 6 liters is 92% to 94%. Tends to run more in the 91% to 92% range with speaking. General appearance: No acute distress. Chest: Fairly good breath sounds. A few basilar crackles. No wheeze. No use of accessory muscles. Heart: Regular rhythm. Heart tones normal. Abdomen is soft. Bowel tones present. Extremities: No clubbing, cyanosis, nor pretibial edema. LABORATORY DATA: Shows a white count of 13,600 with 76 polymorphonuclears, no bands, 9 lymphocytes, 12 monocytes. Hemoglobin stable at 11.1. Platelet count rising at 167,000. Sodium 137, potassium 3.6, chloride 96, CO2 is 26, BUN 8, creatinine 0.3, calcium is 8.6, total bilirubin 0.4, AST 18, ALT 39, alkaline phosphatase normal at 72. Magnesium 1.6. Albumin of 3.2. Procalcitonin on admission was 0.26. Chest x-ray on admission showed no effusions or infiltrates. Chest x-ray today shows moderate patchy bilateral multifocal airspace opacities. CT scan of the chest using PE protocol shows no evidence of pulmonary embolism. There are diffuse patchy pulmonary opacities most confluent at the right apex. Small bilateral pleural effusions. ASSESSMENT: 1. Influenza A. The patient has already been started on oseltamivir in appropriate dosing. This had been started soon after symptoms began when she 1st presented to [facility]gent [facility]. She is feeling quite a bit better. Oxygen needs are decreasing. 2. Complicating methicillin-sensitive Staph aureus pneumonia. Currently on ceftriaxone. Tolerating it reasonably well. I think if further medications are required at discharge, consideration should be given to doxycycline for treatment of the MSSA pneumonia. Pulmonary toilet: The patient has a good cough. States the phlegm is rather thin and easy to bring up. I do not think we need an Acapella. Already receiving nebulized DuoNeb. Can probably be given on a p.r.n. basis. PLAN: 1. Continue current regimen. 2. Might consider doxycycline if oral antibiotics needed at discharge. 3. Will need a followup with her primary care physician about 10-14 days after discharge. Thank you so much for asking the Pulmonary service to see this most interesting individual. We will follow her respiratory status closely along with you.
[2016-11-16] MEDS ORDERED: CeFAZolin Inj 2 GM in IV Premix 1 EACH IV SCH (17:25)
--- NOTE | 2016-11-16 18:40 | CONS ---
[address] [address] CONSULTATION REPORT PATIENT: MALICK SUAREZ : 1965 MR#: [id number] ADMIT: 11/13/2016 JOB ID: [id number] DATE OF SERVICE: 11/16/[address] Keita for this timely consult. REASON FOR CONSULTATION: Influenza A respiratory tract infection complicated by probable staphylococcal pneumonia. 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 She got worse for three or four days, so on November 13 she went to the [facility]gent [facility] where she had a rapid negative flu test. Nonetheless, she was started on Tamiflu which is appropriate as we are having a great deal of influenza around the area. Her symptoms worsened during the day on November 13, and so she went to the emergency department where a PCR test was positive for influenza. A chest x-ray was fairly clear, but she had a high white count and was a bit hypoxic, requiring 4 L of nasal oxygen so she was admitted. The patient notes that after many years she was able to quit smoking just around this year. Following admission, the patient has initially gotten somewhat worse and subsequent chest x-rays and a CT scan showed bilateral infiltrates which seem to be progressive. A sputum grew MSSA and the patient was started on therapy for possible post influenza Staph aureus pneumonia. This evening, I am asked to see the patient. She tells me she feels she has actually turned the corner and that her breathing is becoming a bit easier. She also notes that her fevers and chills are resolving as well as her diffuse myalgias, and other unusual symptoms. She does note that she remains somewhat short of breath though and still requires the same 4 L of nasal oxygen. PAST MEDICAL HISTORY: 1. Cigarette smoking, having quit October 08, 2016. 2. History of alcohol abuse with alcoholic hepatitis in the past. 3. Note that alcohol abuse led to alcoholic hepatitis and pancreatitis in the past. Note that she was seen here in the emergency department late on September 27 with an alcohol level of 362. Then on other ER visits earlier in the year had alcohol levels of 300 on September 14 and 126 back on September 03. 4. Hypertension. SOCIAL HISTORY: The patient was a cigarette smoker until late September as mentioned. She has been a fairly heavy consumer of alcohol up until very recently and has suffered some complications from that. 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 FAMILY HISTORY: Negative for tuberculosis. TRAVEL HISTORY: The patient's work has taken her to [place] [facility] as well as [place] within the past year. She has not traveled internationally. ALLERGIES: The patient is said to have a severe reaction to PENICILLIN with life-threatening complications though she has tolerated cephalosporins here. REVIEW OF SYSTEMS: Was done. The patient has had a significant headache, but it is diminishing. She denies ocular complaints. She has had a sore throat which continues but has improved a bit over the last few days. She has not had stiff neck. She has had a productive cough which has had some yellowish-greenish sputum at times. She has had some diffuse tracheitis-type symptoms with scratchy pain behind her sternum. She has had nausea but no vomiting or diarrhea. No dysuria. No neurologic symptoms. PHYSICAL EXAMINATION: Reveals an afebrile, comfortable-appearing woman who looks about her stated age of 50. She was febrile to 38.5 degrees when she was admitted on November 13. She has been afebrile ever since. Pulse 87, respiratory rate 22, blood pressure 143/90, saturating in the low 90s right now on 4 L. Her oxygen requirements started off at 4 L. They eventually went up to 10 and then back down over the past 24 hours. Her mental status is clear. Eyes without conjunctivitis or scleral icterus. Oral cavity without thrush, pharyngitis, or hairy leukoplakia. Neck is supple without adenopathy. Lungs with a few fine rales bilaterally but pretty good air flow. Cardiac tones: Regular rate and rhythm without murmur. Abdomen soft and nontender. No skin rashes appreciated. She does not have a Sheldon catheter. Extremities are benign. LABORATORIES: Include a white count which was 19,000 when she came in. It is currently 13,000 with a bit of a poly predominance. She had 7% bands on admission, that has resolved. Creatinine 0.32. ALT is 39, AST 18, procalcitonin has been 0.2, 0.4 and 0.16 over the last three measurements. Urine Legionella antigen negative. Urine pneumococcal antigen negative. MRSA screen is pending. PCR and respiratory secretions was influenza A. Blood cultures have been negative. Sputum on admission had a few polys and mixed pj but grew Staph aureus which was MSSA. IMAGING: Includes a chest x-ray from admission which was normal. A subsequent chest x-ray on November 14 showed bilateral infiltrates which had developed and these were fairly diffuse. I reviewed a CT angiogram carefully and it shows diffuse patchy bilateral pulmonary infiltrates consistent with a multifocal pneumonia. Whether this represents viral or bacterial pneumonia can, of course, not be determined by radiograph. Also note that an echocardiogram has been done which shows excellent left ventricular function and no valvular abnormalities. IMPRESSION: This is relatively healthy, 51-year-old woman presents with classic symptoms of influenza A which have been followed by at least colonization with Staph aureus, and I think that it is possible that at least some infiltrates represent a true MSSA pneumonia. I would think if the extensive bilateral infiltrates we see on the CT scan were all due to Staph aureus, the patient be much more toxic than she is this evening, but nonetheless, I think we must respect the fact that MSSA is present in her airway. She has already completed the therapy for her influenza and has completed the five days of oseltamivir which was prescribed. She is currently on ceftriaxone which would be a reasonable agent for MSSA pneumonia, though I might prefer to use Ancef while she is here in the hospital. She is also receiving azithromycin by the IV route and I am not certain that that is necessary given her overall situation with influenza A and possible Staph aureus superinfection. If azithromycin is to be continued, it should be switched to the oral route. RECOMMENDATIONS: 1. I would go ahead and stop the ceftriaxone. Though it is a reasonable agent for MSSA pneumonia, I would be inclined to use cefazolin which is likely a little bit better agent in these circumstances. 2. The patient could probably discharge in the near future on an oral agent such as doxycycline to which the MSSA is susceptible, but I think we should definitely keep her in the hospital a bit longer to make absolutely certain that her respiratory status is improving, especially with regards to her oxygenation. 3. ID will continue to closely follow this patient with you. ADDITIONAL INFORMATION: Because there is serious history of PENICILLIN allergy as a child, I am not as comfortable as I was when I initially dictated the note about switching from ceftriaxone to cefazolin. The patient is currently tolerating ceftriaxone which is a third generation cephalosporin and there may be more reactivity between 1st generation cephalosporins and penicillins. Given that the patient is doing fairly well, will continue with ceftriaxone for the time being. If she fails to respond to this, we might consider a completely different class of agents such as linezolid. Addenda added by HITESH 11/17/16 at 7:40am
--- NOTE | 2016-11-16 19:14 | NUR ---
Respiratory pt changed to 10L Oxymask in the morning tolerating with SpO2 mid 90s. Than pt changed to NC 6L at lunch. Pt able to eat denied being SOB with SpO2 90-93%. Pt Still on 6L NC. Report given to oncoming RN.
--- NOTE | 2016-11-16 21:37 | PCM.PNMED ---
Subjective Date of Service Nov 16, 2016 Subjective This is a 51-year-old female who does have a history of smoking but no previous respiratory issues who presents with 4 days of shortness of breath cough along with fevers and chills at home. She was seen in the urgent care earlier this morning and was told she had a negative influenza test. Apparently they thought was a false negative so she was given Tamiflu prednisone and albuterol. However her symptoms worsened and she presented to the emergency room this evening. Her evaluation in the emergency room does include a positive influenza PCR test. Chest x-ray did not reveal any acute infiltrates. She was found to have an elevated white count of 19.3 with 91% polys 2% lymphs. She was also found to have a low sodium of 129, lactic acid level of 1.7. Protein was less than 0.010. She was tachycardic sinus in the emergency room to 113. He was also found to be hypoxic and required 4 L nasal cannula to maintain an O2 sat of 96%. Patient notes that she quit smoking 40 days ago as she thought it was about time to do so. She was not having any symptoms at that time. Also of note she does drink about a fifth of vodka over a period of a week. Currently she is requiring 10 L High Flow to maintain sats. Overnight events: No acute overnight events. Today Ms. Martha Calderon was lying comfortably in bed with Oxymask in place and tolerating 10L . She denies headache, dizziness, sore throat, chest pain, abdominal pain, nausea, vomiting, constipation, and diarrhea. She is voiding and eliminating without difficulty. She reports painful cough with deep inhalation has improved since yesterday. She requests IV Dilaudid for low back pain. Exam Vital Signs Vital Sign - Last Date Time Temp Pulse Resp B/P Pulse Ox O2 Delivery O2 Flow Rate FiO2 11/16/16 04:30 79 22 93 Nasal Cannula 30 50 11/16/16 04:16 37.1 157/87 Intake and Output 11/15/16 11/15/16 11/16/16 Cumulative From/Thru 15:00 23:00 07:00 11/13/16 17:33 - 11/16/16 06:05 Intake Total 870 ml 450 ml 9298 ml Output Total 1650 ml 850 ml 4100 ml Balance -780 ml -400 ml 5198 ml Intake Oral 870 ml 400 ml 2670 ml IV Total 50 ml 6628 ml Output Urine Total 1650 ml 850 ml 4100 ml # Voids 2 # Bowel Movements 1 3 Exam General: Middle aged lady lying in bed with acute distress controlled with High flow O2, well-developed, well-nourished, appropriately interactive HEENT: Normocephalic, atraumatic. External ears without defect. Pupils equal, round, and reactive to light and accommodation. Anicteric sclerae, moist conjunctivae, and no lid lag. Oropharynx free of erythema and cobble stoning with moist mucosa. Neck: Supple with full range of motion. No jugular venous distension. No bruits. No lymphadenopathy or thyromegaly. Cardiovascular: Regular rate and rhythm with no murmurs, rubs, or gallops appreciated Pulmonary: Diffuse prominent fine crackles, without wheezes, or rhonchi. Abnormal respiratory effort with no use of accessory muscles. Abdomen: Bowel tones present. Soft, nontender, nondistended. No hepatosplenomegaly or masses appreciated. Extremities: No clubbing, cyanosis, edema, or lymphadenopathy appreciated. Skin: Normal temperature, turgor, and texture; no rash, ulcers, or subcutaneous nodules appreciated. Neurological: Cranial nerves grossly intact. Normal muscle strength, tone, and bulk. Reflexes, coordination, and sensory function within normal limits. No known gait impairment. Psychiatric: Normal mood and affect. Alert and oriented to person, place, and time. IVs and Medications Medications Reviewed: Medications were reviewed in detail Lab and Diagnostics Result Diagram: 11/16/16 0340 11/16/16 0340 X-Rays, CTs and MRIs X-RAY CHEST ONE VIEW, PORTABLE IMPRESSION: Resolving multifocal pneumonia. Dictated by: Randall Potter M.D. on 11/16/2016 at 8:51 CT ANGIO CHEST PULMONARY EMBOLISM IMPRESSION: 1. No acute pulmonary embolus. 2. Diffuse patchy pulmonary opacities most confluent at the right apex. Differential considerations include multifocal pneumonia versus aspiration. 3. Small bilateral pleural effusions, likely reactive/infectious in nature. Short interval followup is recommended with resolution of the patient's symptoms to ensure there is no underlying pulmonary neoplasm. Dictated by: Miranda Kramer M.D. on 11/16/2016 at 8:58 X-RAY CHEST ONE VIEW IMPRESSION: No radiographic evidence for pneumonia. Dictated by: Griffin lAejo M.D. on 11/13/2016 at 18:48 X-RAY CHEST ONE VIEW IMPRESSION: Bilateral pneumonia. Dictated by: Carole Gibson MD, PhD on 11/14/2016 at 9:24 12-lead ECG Sinus rhythm at a rate of 102 with possible left atrial enlargement Cardiac Echo Impressions Echocardiogram Report Interpretation Summary The left ventricle is normal in size. The ejection fraction is estimated to be 60-65%. The right ventricle is normal in size and function. No significant valvular pathology seen. Additional Diagnostics [facility] AB DateTimeAnalyzed 03:38:00 -_ pH ____7.446 - 7.350 7.450 pCO2 ___38.5__ -mmHg 35.0 45.0 pO2 ___46.3__ -mmHg 69.0 116 HCO3- ___26.2__ -mmol/L 22.0 26.0 Assessment & Plan This is a 51-year-old female who does have a history of smoking but no previous respiratory issues who presents with 4 days of shortness of breath cough along with fevers and chills at home. Her evaluation in the emergency room does include a positive influenza PCR test. Chest x-ray did not reveal any acute infiltrates. She was found to have an elevated white count of 19.3 with 91% polys 2% lymphs. She was also found to have a low sodium of 129, lactic acid level of 1.7. Currently she is requiring 10 L High Flow to maintain sats. 1. ARDS, present on admission. Improving. - Possibly underlying COPD exacerbation 2nd to Influenza. - Daily CXR results per above. - CT chest results per above. - Bilateral pulmonary infiltrates. - PO2/FiO2 - 109 = Moderate - ECHO results per above. - Oxymask O2 at 10 L. - Pulmonary following, time and recommendations appreciated. 2. Influenza A with significant respiratory symptoms including acute hypoxia, acute, present on admission - Rapid Influenza screen positive. - Tamiflu 75mgj BID x 5 days. last dose (11/17/15) - Respiratory Viral PCR positive for Influenza A. 3. Superimposed MSSA Pneumonia, present on admission, Active. - Procalcitonin - 0.26 on admission, currently 0.37 - Sputum cultures MSSA. - MRSA screen negative. - Strep pneumo ag, Legionella pneu ab negative.. - Azithromycin and IV Rocephin daily for now. - DuoNeb nebs every 4 hours and albuterol nebs when necessary - Solu-Medrol 40 mg daily. 4. Sepsis, present on admission, Active. - Likely 2nd to respiratory source, - On admission criteria met:Tachycardic, tachypneic, Leukocytic 19.3. - Treatment per above. 5. Acute hypoxic respiratory failure, present on admission. Active. - Possibly underlying COPD exacerbation 2nd to Influenza. - Continue to treat per above with high flow O2. - ABGs per above. 6. Alcohol withdrawal, acute, present on admission -States that she has not drank since September -She is on CIWA protocol as needed. 7. Abnormal liver enzymes, present on admission, appears to be acute -Most likely secondary to EtOH abuse -We will monitor. Acetaminophen for mild pain when necessary. Bowel regimen Senna and MiraLAX scheduled and PRN. Zofran when necessary for nausea and vomiting. SubQ heparin for now. SCDs in place. High risk medications: IV Ativan PRN. Disposition: Likely here for > 2 days due to ARDS and respiratory failure. Pain Evaluation: Adequate Pain Control GI Prophylaxis: H2 kathy VTE Prophylaxis: Sub-Q Heparin (Unfractionated) VTE Mechanical Devices: Intermittant Pneumatic CD Resuscitation Status: CPR: Attempt Resuscitation Attending Statement The patient was seen and examined together with Dr. Alexander on 11-16-16 and I agree with the history, exam and plan as outlined in the note above. NATASHA ALEXANDER DO Nov 16, 2016 06:07 Regina Smith MD Nov 17, 2016 16:00
[2016-11-16] MEDS: cefTRIAXone Inj 2,000 MG in IV Premix 1 EACH IV SCH (22:51)
[2016-11-17] VITALS (8 sets, daily range): BP systolic 133–149; BP diastolic 76–85; PULSE 74–94; RESP 20–24; O2SAT 93–96
--- NOTE | 2016-11-17 00:48 | NUR ---
Respiration/Pain/Anxiety Pt currently on 3L of oxygen with Sp02 saturations in the mid 90's. Pt takes off 02 at times and Sp02 saturations drop to high 80's-low 90's. Pt anxious over pain medications, stating she is feeling an ache to her back at an 8/10. Pt requests Dilaudid over current scheduled PRN. Provider had not placed the order through pharmacy. [employer] only able to give the PRN on the JAN.
[2016-11-17 03:46] LABS: BASOPHILS % (AUTO) 0.1 % (0-3); EOSINOPHILS % (AUTO) 0 % (0-5); MONOCYTES % (AUTO) 16.4 % (4-12); Mean Corpuscular Hemoglobin 31.5 pg (27.0-35.0); Mean Corpuscular Volume 92.4 fL (81-100); NEUTROPHILS % (AUTO) 67.6 % (40-74); Platelet Count 197 bil/L (150-400)
[2016-11-17 04:09] LABS: Phosphorus 1.3 mg/dL (2.5-4.9)
[2016-11-17] MEDS: Insulin LISPRO 300 Unit/3 mL Inj SUBQ SCH ×4 (08:00→20:30)
[2016-11-17] MEDS: Multivit-Miner-Folic Acid-Iron Tablet PO SCH (09:24)
[2016-11-17] MEDS: Heparin 5,000 Unit/mL Inj SUBQ SCH ×2 (09:25→16:31)
[2016-11-17] MEDS: Sodium Chloride LOK Flush 10 mL Syringe IVFLUSH SCH ×3 (09:25→21:12)
[2016-11-17] MEDS: predniSONE 20 mg Tablet PO SCH (09:25)
--- NOTE | 2016-11-17 09:56 | PROG NOTE ---
[address] [address] PROGRESS NOTE PATIENT: MALICK SUAREZ : 1965 MR#: [id number] ADMIT: 11/13/2016 JOB ID: [id number] DATE: 11/17/2016 INFECTIOUS DISEASE FOLLOWUP NOTE: REASON FOR FOLLOWUP: Severe influenza with extensive bilateral infiltrates and a positive sputum for MSSA. INTERVAL HISTORY: Overnight, the patient is slightly better but not much. She continues to have a cough, which is intermittently productive. She has had no significant fever or chills. She still short of breath even at rest and requires relatively high-flow nasal oxygen. No GI symptoms. PHYSICAL EXAMINATION: Reveals an afebrile woman, temperature 37.6, pulse 88, respiratory rate 20, blood pressure 141/76. She has no rash. Eyes without conjunctivitis. Oral cavity negative. Lungs with crackles heard basically throughout both lung bravo but more towards the bases. Cardiac tones without change. Abdomen negative. LABORATORIES: Include white count 13,900, which is undoubtedly influence to some degree by the steroids she is receiving. Creatinine 0.37. LFT basically normal. Procalcitonin down to 0.9. Recall that her flu A screen was positive, her flu A PCR was positive and her sputum grew Staph aureus, MSSA. IMAGING: Again reviewed today. She has extraordinary bilateral infiltrates on the CT scan. IMPRESSION: This patient started off with influenza A in the setting of cigarette smoking, though she did stop smoking in an unrelated event around [facility]. It is also notable the patient has a very formidable alcohol history and that is the substrate in which she developed this influenza with bilateral infiltrates. How much of these infiltrates may be due to ARDS at this point is unclear. Likewise, I am unsure how much the MSSA is contributing here. If these extensive infiltrates were exclusively due to MSSA, the patient would be much more toxic, I think, so I am not certain if the MSSA is colonizing causing some of the infection or most of it but I would be inclined to think more on the colonizing side of the spectrum. RECOMMENDATIONS: 1. 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 2. I would continue to observe the patient here in the hospital, as she is still requiring 4 or 5 L to maintain her O2 sats but I expect that she will improve steadily over the next few days. 3. Infectious Disease will continue to follow.
[2016-11-17] MEDS: Albuterol-Ipratropium 3 mL Inhalation Solution NEB SCH ×4 (10:13→21:00)
[2016-11-17] MEDS ORDERED: Albuterol 2.5 mg/3 mL Inhalation Solution NEB ONE (12:05)
[2016-11-17] MEDS ORDERED: Potassium Chloride Oral 20 mEq SR Tab(K 3 - 3.7 & Creat < 2) PO ONE (15:50)
--- NOTE | 2016-11-17 17:54 | NUR ---
Pain/Oxygenation/Ambulation/Blood sugar Patient remained alert and oriented x3 throughout shift, up independently in room -- instructed patient to use call light if feeling dizzy before standing, verbalized understanding. Steady gait and no reports of dizziness. Patient weaned to 2LNC, SPO2 at 95%. In the AM, patient reported mild SOB at rest. As of 1700, patient states she feels she is improving and that her SOB has decreased. Patient reported 8/10 pain throughout shift that she describes in her upper chest from persistent coughing. Administered 1mg PO Dilaudid, 650 Tylenol and Tessalon zofia x2, would drop patient to a 5-6/10 which she reported as tolerable. Next due times written on white board. 1200 blood glucose number was 318 -- AM BG was 138. Finger thoroughly cleaned with alcohol wipe follow by water rinse and pat dry x2 to verify, in 310's range with each check. Administered 4 units lispro per protocol -- next BG at 1700 was 183. No reports of n/v/d/c or abdominal pain.
--- NOTE | 2016-11-17 18:32 | PCM.PNMED ---
Subjective Date of Service Nov 17, 2016 Subjective This is a 51-year-old female who does have a history of smoking but no previous respiratory issues who presents with 4 days of shortness of breath cough along with fevers and chills at home. She was seen in the urgent care earlier this morning and was told she had a negative influenza test. Apparently they thought was a false negative so she was given Tamiflu prednisone and albuterol. However her symptoms worsened and she presented to the emergency room this evening. Her evaluation in the emergency room does include a positive influenza PCR test. Chest x-ray did not reveal any acute infiltrates. She was found to have an elevated white count of 19.3 with 91% polys 2% lymphs. She was also found to have a low sodium of 129, lactic acid level of 1.7. Protein was less than 0.010. She was tachycardic sinus in the emergency room to 113. He was also found to be hypoxic and required 4 L nasal cannula to maintain an O2 sat of 96%. Patient notes that she quit smoking 40 days ago as she thought it was about time to do so. She was not having any symptoms at that time. Also of note she does drink about a fifth of vodka over a period of a week. Currently she is requiring 5L oxy mask down from 10L High flow to maintain sats. Overnight events: No acute overnight events. Today Ms. Martha Calderon was lying comfortably in bed with Nasal canula in place and tolerating 5L down from 6 and 10 the day before . She denies headache, dizziness, sore throat, chest pain, abdominal pain, nausea, vomiting, constipation, and diarrhea. She is voiding and eliminating without difficulty. She reports painful cough with deep inhalation has improved since yesterday. She requests IV Dilaudid for low back pain. Reports new chest and back pain similar to her previous episodes of pancreatitis. Exam Vital Signs Vital Sign - Last Date Time Temp Pulse Resp B/P Pulse Ox O2 Delivery O2 Flow Rate FiO2 11/17/16 17:39 Supplement Oxygen 11/17/16 16:18 84 20 94 3.00 11/17/16 14:56 36.6 149/85 11/16/16 07:55 50 Intake and Output 11/16/16 11/16/16 11/17/16 Cumulative From/Thru 15:00 23:00 07:00 11/13/16 17:33 - 11/17/16 05:03 Intake Total 1090 ml 548 ml 37058 ml Output Total 1550 ml 200 ml 5850 ml Balance -460 ml 348 ml 5086 ml Intake Oral 1090 ml 400 ml 4160 ml IV Total 148 ml 6776 ml Output Urine Total 1550 ml 200 ml 5850 ml # Voids 2 # Bowel Movements 2 0 5 Exam General: Middle aged lady lying in bed with acute distress controlled with nasal canula on 5L down from High flow O2 at 10L, well-developed, well-nourished , appropriately interactive HEENT: Normocephalic, atraumatic. External ears without defect. Pupils equal, round, and reactive to light and accommodation. Anicteric sclerae, moist conjunctivae, and no lid lag. Oropharynx free of erythema and cobble stoning with moist mucosa. Neck: Supple with full range of motion. No jugular venous distension. No bruits. No lymphadenopathy or thyromegaly. Cardiovascular: Regular rate and rhythm with no murmurs, rubs, or gallops appreciated Pulmonary: Diffuse prominent fine crackles, without wheezes, with coarse rhonchi. Abnormal respiratory effort with no use of accessory muscles. Abdomen: Bowel tones present. Soft, nontender, nondistended. No hepatosplenomegaly or masses appreciated. Extremities: No clubbing, cyanosis, edema, or lymphadenopathy appreciated. Skin: Normal temperature, turgor, and texture; no rash, ulcers, or subcutaneous nodules appreciated. Neurological: Cranial nerves grossly intact. Normal muscle strength, tone, and bulk. Reflexes, coordination, and sensory function within normal limits. No known gait impairment. Psychiatric: Normal mood and affect. Alert and oriented to person, place, and time. IVs and Medications Medications Reviewed: Medications were reviewed in detail Lab and Diagnostics Result Diagram: 11/17/16 03311/17/16 033 X-Rays, CTs and MRIs X-RAY CHEST ONE VIEW, PORTABLE IMPRESSION: Resolving multifocal pneumonia. Dictated by: Randall Potter M.D. on 11/16/2016 at 8:51 CT ANGIO CHEST PULMONARY EMBOLISM IMPRESSION: 1. No acute pulmonary embolus. 2. Diffuse patchy pulmonary opacities most confluent at the right apex. Differential considerations include multifocal pneumonia versus aspiration. 3. Small bilateral pleural effusions, likely reactive/infectious in nature. Short interval followup is recommended with resolution of the patient's symptoms to ensure there is no underlying pulmonary neoplasm. Dictated by: Miranda Kramer M.D. on 11/16/2016 at 8:58 X-RAY CHEST ONE VIEW IMPRESSION: No radiographic evidence for pneumonia. Dictated by: Griffin Alejo M.D. on 11/13/2016 at 18:48 X-RAY CHEST ONE VIEW IMPRESSION: Bilateral pneumonia. Dictated by: Carole Gibson MD, PhD on 11/14/2016 at 9:24 12-lead ECG Sinus rhythm at a rate of 102 with possible left atrial enlargement Cardiac Echo Impressions Echocardiogram Report Interpretation Summary The left ventricle is normal in size. The ejection fraction is estimated to be 60-65%. The right ventricle is normal in size and function. No significant valvular pathology seen. Additional Diagnostics [facility] DateTimeAnalyzed 03:38:00 -_ pH ____7.446 - 7.350 7.450 pCO2 ___38.5__ -mmHg 35.0 45.0 pO2 ___46.3__ -mmHg 69.0 116 HCO3- ___26.2__ -mmol/L 22.0 26.0 Assessment & Plan This is a 51-year-old female who does have a history of smoking but no previous respiratory issues who presents with 4 days of shortness of breath cough along with fevers and chills at home. Her evaluation in the emergency room does include a positive influenza PCR test. Chest x-ray did not reveal any acute infiltrates. She was found to have an elevated white count of 19.3 with 91% polys 2% lymphs. She was also found to have a low sodium of 129, lactic acid level of 1.7. Currently she is requiring 5L oxymask which is a marked improvement from several day prior, down from 10 L High Flow O2. 1. ARDS, present on admission. Improving. - Possibly underlying COPD exacerbation 2nd to Influenza. - CT chest results per above. - Bilateral pulmonary infiltrates. - PO2/FiO2 - 109 = Moderate on admission. - ECHO results per above. - Oxymask O2 down from 10 L to 5L Currently. - Pulmonary following, time and recommendations appreciated. - Repeat CXR tomorrow. 2. Influenza A with significant respiratory symptoms including acute hypoxia, acute, present on admission - Rapid Influenza screen positive. - Tamiflu 75mgj BID x 5 days. last dose (11/17/15). Finished full course of Tamiflu. - Respiratory Viral PCR positive for Influenza A. 3. Acute hypoxic respiratory failure, present on admission. Active. - Possibly underlying COPD exacerbation 2nd to Influenza. - Continue to treat per above with high flow O2. - ABGs per above. 4. Superimposed MSSA Pneumonia, present on admission, Active. - Procalcitonin - 0.26 on admission, currently 0.09. - Sputum cultures - MSSA. - MRSA screen negative. - Strep pneumo ag, Legionella pneu ab negative.. - Azithromycin and IV Rocephin daily for now. - DuoNeb nebs every 4 hours and albuterol nebs when necessary - Solu-Medrol 40 mg daily. - Infectious disease following, time and recommendations appreciated. 5. Sepsis, present on admission, Resolved. - Likely 2nd to respiratory source, - On admission criteria met:Tachycardic, tachypneic, Leukocytic 19.3. - Treatment per above. 6. Alcohol Use disorder, acute, present on admission. Active. - States that she has not drank since September - She is on CIWA protocol as needed. 7. Abnormal liver enzymes, present on admission, improving. -Most likely secondary to EtOH abuse -We will monitor. Acetaminophen for mild pain when necessary. Bowel regimen Senna and MiraLAX scheduled and PRN. Zofran when necessary for nausea and vomiting. SubQ heparin for now. SCDs in place. High risk medications: IV Ativan PRN. Disposition: Likely here for > 2 days due to ARDS and respiratory failure. Pain Evaluation: Adequate Pain Control GI Prophylaxis: H2 kathy VTE Prophylaxis: Sub-Q Heparin (Unfractionated) VTE Mechanical Devices: Intermittant Pneumatic CD Resuscitation Status: CPR: Attempt Resuscitation Attending Statement The patient was seen and examined together with Dr. Alexander on 11-17-16 and I agree with the history, exam and plan as outlined in the note above. NATASHA ALEXANDER DO Nov 17, 2016 18:23 Regina Smith MD Nov 18, 2016 15:40
[2016-11-17] MEDS: cefTRIAXone Inj 2,000 MG in IV Premix 1 EACH IV SCH (20:37)
[2016-11-17] MEDS ORDERED: 0.9% Sodium Chloride 50 ML ONE (20:40)
[2016-11-17] MEDS: Ondansetron 2 mg/mL 2 mL Inj IVPUSH PRN (21:51)
[2016-11-18] VITALS (14 sets, daily range): BP systolic 120–145; BP diastolic 72–86; PULSE 80–112; RESP 20–24; O2SAT 90–96
[2016-11-18] MEDS ORDERED: Promethazine Inj 25 MG in Dextrose 5%-Pha MIX 50 ML IV ONE (00:10)
[2016-11-18] MEDS: Heparin 5,000 Unit/mL Inj SUBQ SCH ×4 (00:34→23:53)
[2016-11-18] MEDS: guaiFENesin DM 200-20 mg/10 mL Syrup PO PRN ×3 (00:34→17:57)
[2016-11-18] MEDS: Albuterol 2.5 mg/3 mL Inhalation Solution NEB PRN (02:59)
--- NOTE | 2016-11-18 03:22 | NUR ---
Pain/cough/nausea/fidgety: Pt continuously c/o pain mostly in the chest from coughing, is on po dilaudid 1mg Q6hrs.. Pt has had freq cough with small amount of sputum production received medication for cough with some relief. Nausea has been a continuous problem. She had received 8mg of zofran and 2 hrs late was still having nausea with dry heaves. MD was paged and order received for phenergan and helped but not totally gone. Spo2 has been alarming through out the night with titration for O2 up to 4L/M per nasal cannula resulting in slight increase in spo2. highest was 91% on 4L/M RT asked to given neb at 0300 with relief of SOB spo2 still 87-90% on 4L/M. Pt has been restless and fidgety and appeared to be getting worse during the night. CIWA assessment was done at 0315 and score was 11. Pt was given 10mg IV valium and has calmed down and is resting a little calmer. Spo2 continues to be between 88-92%.
--- NOTE | 2016-11-18 04:25 | ABG ---
DateTimeAnalyzed 04:19:00 -_ pH ____7.479 - 7.350 7.450 pCO2 ___41.5__ -mmHg 35.0 45.0 pO2 ___67.0__ -mmHg 69.0 116 HCO3- ___30.4__ -mmol/L 22.0 26.0 ABE ____6.6__ -mmol/L -2.0 2.0 tHb ___11.6__ -g/dL O2Hb ___92.4__ -% COHb ____1.2__ -% MetHb ____1.1__ -% sO2 ___94.6__ -% FIO2 ___37.0__ -% Drawn By MK - Date/Time Notified____ 04:24:00 -_ Oxygen Device 1 __CANNULA - Notified By MK - B 766 -mmHg tO2 ___15.1__ -Vol% Crow test _Positive -
[2016-11-18] MEDS ORDERED: Potassium Phos (mEq) Inj 40 MEQ in Dextrose 5% 500 ML IV ONE (07:30)
[2016-11-18] MEDS: Insulin LISPRO 300 Unit/3 mL Inj SUBQ SCH ×4 (08:00→21:48)
[2016-11-18] MEDS: Albuterol-Ipratropium 3 mL Inhalation Solution NEB SCH ×4 (08:08→20:57)
[2016-11-18 08:42] LABS: BASOPHILS % (AUTO) 0.1 % (0-3); EOSINOPHILS % (AUTO) 0.2 % (0-5); MONOCYTES % (AUTO) 17.9 % (4-12); Mean Corpuscular Hemoglobin 31.5 pg (27.0-35.0); Mean Corpuscular Volume 93.4 fL (81-100); NEUTROPHILS % (AUTO) 67.3 % (40-74); Platelet Count 223 bil/L (150-400)
[2016-11-18 09:19] LABS: Magnesium 1.4 mg/dL (1.6-2.6)
[2016-11-18] MEDS: Sodium Chloride LOK Flush 10 mL Syringe IVFLUSH SCH ×3 (09:20→23:53)
[2016-11-18] MEDS: Multivit-Miner-Folic Acid-Iron Tablet PO SCH (09:20)
[2016-11-18] MEDS: predniSONE 20 mg Tablet PO SCH (09:21)
[2016-11-18] MEDS: Ondansetron 2 mg/mL 2 mL Inj IVPUSH PRN ×2 (09:30→23:57)
--- NOTE | 2016-11-18 09:39 | DRSVH ---
PROCEDURE: X-RAY CHEST ONE VIEW, PORTABLE ([id number]) INDICATIONS: resp failure TECHNIQUE: One view of the chest was acquired. COMPARISON: [facility], CR, XR CHEST 1VW (PORTABLE), 11/16/2016, 6:16. FINDINGS: Surgical changes and devices: None. Lungs and pleura: Persistent, although improved appearance of multifocal bilateral pulmonary opacitie s. Mediastinum: Mediastinal contours appear normal. Heart size is normal. Bones and chest wall: No suspicious bony lesions. Overlying soft tissues appear unremarkable. IMPRESSION: Improved although persistent multifocal bilateral pulmonary opacities, likely related to pneumonia. Dictated by: Tia Ross M.D. on 11/18/2016 at 9:28 Approved by: Tia Ross M.D. on 11/18/2016 at 9:28
--- NOTE | 2016-11-18 11:33 | PROG NOTE ---
[address] [address] PROGRESS NOTE PATIENT: MALICK SUAREZ : 1965 MR#: [id number] ADMIT: 11/13/2016 JOB ID: [id number] DATE: 11/18/2016 INFECTIOUS DISEASE FOLLOW UP NOTE: REASON FOR FOLLOWUP: Severe influenza with bilateral infiltrates and sputum positive for MSSA. INTERVAL HISTORY: Overnight, the patient has felt as if she had a recrudescence of her flu. She noticed that she had some myalgias, arthralgias and a subjective fever and coryza, all of which was part of her initial flu-like symptoms. This morning, it is a bit better but she feels just generally washed out after the events of last night. She continues to have an intermittent cough which is sometimes productive and to be short of breath at times. She is on 2 L nasal oxygen but when we entered the room she had been off it for 15 minutes and she desaturated down to 87 but was basically asymptomatic. PHYSICAL EXAMINATION: Reveals a febrile woman. Temperature 38 degrees at 3 a.m. That is her first documented fever of 38 or higher in this hospital stay. Pulse 89, respiratory rate 22, blood pressure 121/75. She is saturating well but on 2-4 L nasal prongs and as noted, desaturates when she is off. She is awake and alert. Oral cavity negative. Lungs with a few wheezes and rales at the bases but not impressive. Cardiac tones without change. No skin rash. No other change in examination. LABORATORIES: Include a white count of still 17,000 but she is on steroids. Creatinine 0.39. LFTs normal. Procalcitonin last checked was less than 0.1 yesterday. Micro studies include the prior multiplex PCR that was positive for flu A and blood cultures that were negative. IMAGING: Includes a chest x-ray, which shows improved bibasilar infiltrates. IMPRESSION: This patient was until recently a fairly heavy and significant cigarette smoker having quit about a month before the onset of this illness. She is admitted with influenza A and bilateral infiltrates which may or may not have been due to methicillin sensitive Staph aureus. She is currently receiving ceftriaxone for the Staph aureus as well as having recently completed a course of oseltamivir. She has also received several days of azithromycin which I think can now be stopped. The patient is on prednisone because of a potential COPD exacerbation triggered by the influenza and concomitant apparent bacterial infection. RECOMMENDATIONS: 1. Will go ahead and stop the azithro today. 2. The patient probably should be kept in the hospital until she stops desaturating, but then could be sent out on doxycycline to finish a 10-day course or so for what may have been an MSSA pneumonia or tracheal bronchitis. 3. This case discussed in person with the hernandez team.
--- NOTE | 2016-11-18 16:51 | PCM.PNMED ---
Subjective Date of Service Nov 18, 2016 Subjective This is a 51-year-old female who does have a history of smoking but no previous respiratory issues who presents with 4 days of shortness of breath cough along with fevers and chills at home. She was seen in the urgent care earlier this morning and was told she had a negative influenza test. Apparently they thought was a false negative so she was given Tamiflu prednisone and albuterol. However her symptoms worsened and she presented to the emergency room this evening. Her evaluation in the emergency room does include a positive influenza PCR test. Chest x-ray did not reveal any acute infiltrates. She was found to have an elevated white count of 19.3 with 91% polys 2% lymphs. She was also found to have a low sodium of 129, lactic acid level of 1.7. Protein was less than 0.010. She was tachycardic sinus in the emergency room to 113. He was also found to be hypoxic and required 4 L nasal cannula to maintain an O2 sat of 96%. Patient notes that she quit smoking 40 days ago as she thought it was about time to do so. She was not having any symptoms at that time. Also of note she does drink about a fifth of vodka over a period of a week. Currently she is requiring 5L oxy mask down from 10L High flow to maintain sats. Overnight events: No acute overnight events aside from anxiety. Today Ms. Martha Calderon was lying comfortably in bed with Nasal canula in place and tolerating 0L down from 5L. She denies headache, dizziness, sore throat, chest pain, abdominal pain, nausea, vomiting, constipation, and diarrhea. She is voiding and eliminating without difficulty. She reports painful cough with deep inhalation has improved since yesterday. Exam Vital Signs Vital Sign - Last Date Time Temp Pulse Resp B/P Pulse Ox O2 Delivery O2 Flow Rate FiO2 11/18/16 16:38 83 20 91 Nasal Cannula 2.00 11/18/16 16:20 37.0 120/72 11/16/16 07:55 50 Intake and Output 11/17/16 11/17/16 11/18/16 Cumulative From/Thru 15:00 23:00 07:00 11/13/16 17:33 - 11/18/16 06:36 Intake Total 940 ml 940 ml 21885 ml Output Total 1425 ml 2 ml 7277 ml Balance -485 ml 938 ml 5539 ml Intake Oral 940 ml 800 ml 5900 ml IV Total 140 ml 6916 ml Output Urine Total 1425 ml 2 ml 7277 ml # Voids 2 4 # Bowel Movements 0 5 Exam General: Middle aged lady lying in bed with acute distress controlled with nasal canula on 5L down from High flow O2 at 10L, well-developed, well-nourished , appropriately interactive HEENT: Normocephalic, atraumatic. External ears without defect. Pupils equal, round, and reactive to light and accommodation. Anicteric sclerae, moist conjunctivae, and no lid lag. Oropharynx free of erythema and cobble stoning with moist mucosa. Neck: Supple with full range of motion. No jugular venous distension. No bruits. No lymphadenopathy or thyromegaly. Cardiovascular: Regular rate and rhythm with no murmurs, rubs, or gallops appreciated Pulmonary: Clear to auscultation bilaterally, no wheezes, rhonchi, rales. Normal respiratory effort with no use of accessory muscles. Abdomen: Bowel tones present. Soft, nontender, nondistended. No hepatosplenomegaly or masses appreciated. Extremities: No clubbing, cyanosis, edema, or lymphadenopathy appreciated. Skin: Normal temperature, turgor, and texture; no rash, ulcers, or subcutaneous nodules appreciated. Neurological: Cranial nerves grossly intact. Normal muscle strength, tone, and bulk. Reflexes, coordination, and sensory function within normal limits. No known gait impairment. Psychiatric: Normal mood and affect. Alert and oriented to person, place, and time. IVs and Medications Medications Reviewed: Medications were reviewed in detail Lab and Diagnostics Result Diagram: 11/18/16 0835 11/18/16 0835 X-Rays, CTs and MRIs X-RAY CHEST ONE VIEW, PORTABLE IMPRESSION: Resolving multifocal pneumonia. Dictated by: Randall Potter M.D. on 11/16/2016 at 8:51 CT ANGIO CHEST PULMONARY EMBOLISM IMPRESSION: 1. No acute pulmonary embolus. 2. Diffuse patchy pulmonary opacities most confluent at the right apex. Differential considerations include multifocal pneumonia versus aspiration. 3. Small bilateral pleural effusions, likely reactive/infectious in nature. Short interval followup is recommended with resolution of the patient's symptoms to ensure there is no underlying pulmonary neoplasm. Dictated by: Miranda Kramer M.D. on 11/16/2016 at 8:58 X-RAY CHEST ONE VIEW IMPRESSION: No radiographic evidence for pneumonia. Dictated by: Griffin Alejo M.D. on 11/13/2016 at 18:48 X-RAY CHEST ONE VIEW IMPRESSION: Bilateral pneumonia. Dictated by: Carole Gibson MD, PhD on 11/14/2016 at 9:24 12-lead ECG Sinus rhythm at a rate of 102 with possible left atrial enlargement Cardiac Echo Impressions Echocardiogram Report Interpretation Summary The left ventricle is normal in size. The ejection fraction is estimated to be 60-65%. The right ventricle is normal in size and function. No significant valvular pathology seen. Additional Diagnostics [facility] DateTimeAnalyzed 03:38:00 -_ pH ____7.446 - 7.350 7.450 pCO2 ___38.5__ -mmHg 35.0 45.0 pO2 ___46.3__ -mmHg 69.0 116 HCO3- ___26.2__ -mmol/L 22.0 26.0 Assessment & Plan This is a 51-year-old female who does have a history of smoking but no previous respiratory issues who presents with 4 days of shortness of breath cough along with fevers and chills at home. Her evaluation in the emergency room does include a positive influenza PCR test. Chest x-ray did not reveal any acute infiltrates. She was found to have an elevated white count of 19.3 with 91% polys 2% lymphs. She was also found to have a low sodium of 129, lactic acid level of 1.7. Currently she is requiring 5L oxymask which is a marked improvement from several day prior, down from 10 L High Flow O2. 1. Acute ARDS, present on admission. Improving. - Possibly underlying COPD exacerbation 2nd to Influenza. - CT chest results per above. - Bilateral pulmonary infiltrates. - PO2/FiO2 - 109 = Moderate on admission. - ECHO results per above. - Oxymask O2 down from 10 L to 5L Currently. - Pulmonary following, time and recommendations appreciated. - Repeat CXR 11/20/16. - Guaifenesin and Tessalon pearls for cough. 2. Acute Influenza A with significant respiratory symptoms including acute hypoxia, present on admission, Improving. - Rapid Influenza screen positive. - Tamiflu 75mgj BID x 5 days. last dose (11/17/15). Finished full course of Tamiflu. - Respiratory Viral PCR positive for Influenza A. 3. Acute hypoxic respiratory failure, present on admission. Active. - Possibly underlying COPD exacerbation 2nd to Influenza. - Continue to treat per above with high flow O2. - ABGs per above. 4. Acute Pneumonia, present on admission, Improving. - Sputum cx MSSA, however ID thought this was still unlikely. - Procalcitonin - 0.26 on admission, currently 0.09. - Sputum cultures - MSSA. - MRSA screen negative. - Strep pneumo ag, Legionella pneu ab negative.. - Discontinued Azithromycin, Continue IV Rocephin daily for now. - DuoNeb nebs every 4 hours and albuterol nebs when necessary - Begin Taper Solu-Medrol 40 mg today and decrease by 10 daily. - Infectious disease following, time and recommendations appreciated. 5. Acute Sepsis, present on admission, Resolved. - Likely 2nd to respiratory source, - On admission criteria met:Tachycardic, tachypneic, Leukocytic 19.3. - Treatment per above. 6. Chronic Alcohol Use disorder, present on admission. Active. - States that she has not drank since September 20. Acute on Chronic Abnormal liver enzymes, present on admission, improving. -Most likely secondary to EtOH abuse Acetaminophen for mild pain when necessary. Bowel regimen Senna and MiraLAX scheduled and PRN. Zofran when necessary for nausea and vomiting. SubQ heparin for now. SCDs in place. High risk medications: IV Ativan PRN. Disposition: Likely here for > 2 days due to ARDS and respiratory failure. Pain Evaluation: Adequate Pain Control GI Prophylaxis: H2 kathy VTE Prophylaxis: Sub-Q Heparin (Unfractionated) VTE Mechanical Devices: Intermittant Pneumatic CD Resuscitation Status: CPR: Attempt Resuscitation Attending Statement The patient was seen and examined together with Dr. Alexander on 11-18-16 and I agree with the history, exam and plan as outlined in the note above. NATASHA ALEXANDER DO Nov 18, 2016 16:46 Regina Smith MD Nov 19, 2016 12:47
[2016-11-18] MEDS ORDERED: guaiFENesin 20 mg/mL 10 mL Syrup PO ONE (16:55)
--- NOTE | 2016-11-18 18:34 | NUR ---
Pain/restlessness/Cough/O2 Patient remained alert and oriented x3, up independently in room, very restless and anxious. CIWA score of 5. Patient out of bed frequently, takes off SPO2 and oxygen intermittently and has to be cued to place back on (will drop to 86 on RA). Currently have patient on 2L NC with SPO2 at 95%. Patient continues to have cough throughout shift, reporting a burning/ache in her chest. Administered Robitussin DM, 1mg PO dilaudid, 650 tylenol and Tessalon zofia x2, patient reports relief in pain. Cepacol throat lozenge ordered in addition. Had one episode of nausea in the AM, administered 8mg IV zofran x1, no further reports of nausea throughout shift.
[2016-11-18] MEDS: guaiFENesin 600 mg ER12 Tablet PO SCH (19:38)
[2016-11-18] MEDS ORDERED: 0.9% Sodium Chloride 250 ML ONE (20:52)
[2016-11-18] MEDS: cefTRIAXone Inj 2,000 MG in IV Premix 1 EACH IV SCH (21:07)
[2016-11-18] MEDS: Benzocaine-Menthol Lozenge 2/Pkg PO PRN (22:20)
[2016-11-19] VITALS (12 sets, daily range): BP systolic 113–134; BP diastolic 54–92; PULSE 73–114; RESP 16–24; O2SAT 90–96
[2016-11-19] MEDS: Benzocaine-Menthol Lozenge 2/Pkg PO PRN ×3 (03:37→22:22)
[2016-11-19 04:00] LABS: BASOPHILS % (AUTO) 0.2 % (0-3); EOSINOPHILS % (AUTO) 0.2 % (0-5); MONOCYTES % (AUTO) 16.2 % (4-12); Mean Corpuscular Volume 93.3 fL (81-100); NEUTROPHILS % (AUTO) 66.5 % (40-74); Platelet Count 288 bil/L (150-400)
[2016-11-19] MEDS: guaiFENesin DM 100-10 mg/5 mL 118 mL Syrup PO ONE (04:00)
--- NOTE | 2016-11-19 06:20 | NUR ---
Febrile P: Pt spiked a Temp of 38.8 around 0346 this AM. I: Pt medicated with PO Tylenol and MD notified. New orders for Blood cultures. E: Awaiting results after Tylenol administered.
[2016-11-19] MEDS: Albuterol-Ipratropium 3 mL Inhalation Solution NEB SCH ×4 (08:13→20:50)
[2016-11-19] MEDS ORDERED: predniSONE 20 mg Tablet PO ONE (08:30)
[2016-11-19] MEDS: Insulin LISPRO 300 Unit/3 mL Inj SUBQ SCH ×4 (09:09→20:21)
[2016-11-19] MEDS: Multivit-Miner-Folic Acid-Iron Tablet PO SCH (09:10)
[2016-11-19] MEDS: guaiFENesin 600 mg ER12 Tablet PO SCH ×2 (09:10→20:23)
[2016-11-19] MEDS: Sodium Chloride LOK Flush 10 mL Syringe IVFLUSH SCH ×2 (09:16→18:04)
[2016-11-19] MEDS: Heparin 5,000 Unit/mL Inj SUBQ SCH ×3 (10:33→21:54)
--- NOTE | 2016-11-19 12:23 | NUR ---
Social Work: Chemical Dependency D: Pt on day 6 of stay for influenza A, hypoxia. Pt is MICHELE GARCIA. Pt has a history of ETOH use. DOG [facility]IR CLIPPER familiar with pt- complete CD assessment completed with pt during September admission by DOG HAIR CLIPPER. Please reference CD assessment for more detailed information on pt's ETOH history. DOG HAIR CLIPPER met with pt at bedside to confirm dcp and provide resources. Pt states that after September she got into [facility] in [place] where she spend 30 days. She has been sober since then. She is not currently experiencing an withdrawal symptoms and denies any triggers or desires to use. Pt denies any suicidal ideation. Pt is followed by her CM, Fidelina at [facility]. Pt states she has been living with a friend, Susie, in [place]. Her friend will transport her home whenever ready. Pt has been I during admission. No further sw needs identified at this time. A: Pt who is I at baseline. P: Anticipate pt to discharge home via POV when ready. DOG HAIR CLIPPER to continue to follow if needs arise. DOMENIC Marcial
--- NOTE | 2016-11-19 13:10 | DRSVH ---
PROCEDURE: X-RAY CHEST ONE VIEW, PORTABLE ([id number]) INDICATIONS: shortness of breath TECHNIQUE: One view of the chest was acquired. COMPARISON: 11/18/2016 FINDINGS: Surgical changes and devices: None. Lungs and pleura: No pleural effusions or pneumothorax. Faint bilateral upper lobe infiltrates, righ t greater than left, and patchy interstitial infiltrates in the lower lobes left greater than right, show some further interval improvement. Mediastinum: Mediastinal contours appear normal. Heart size is normal. Bones and chest wall: No suspicious bony lesions. Overlying soft tissues appear unremarkable. IMPRESSION: 1. Gradual improvement in multilobar pneumonia. Dictated by: Salomon Denise M.D. on 11/19/2016 at 13:08 Approved by: Salomon Denise M.D. on 11/19/2016 at 13:08
--- NOTE | 2016-11-19 18:29 | PCM.PNMED ---
Subjective Date of Service Nov 19, 2016 Subjective This is a 51-year-old female who does have a history of smoking but no previous respiratory issues who presents with 4 days of shortness of breath cough along with fevers and chills at home. She was seen in the urgent care earlier this morning and was told she had a negative influenza test. Apparently they thought was a false negative so she was given Tamiflu prednisone and albuterol. However her symptoms worsened and she presented to the emergency room this evening. Her evaluation in the emergency room does include a positive influenza PCR test. Chest x-ray did not reveal any acute infiltrates. She was found to have an elevated white count of 19.3 with 91% polys 2% lymphs. She was also found to have a low sodium of 129, lactic acid level of 1.7. Protein was less than 0.010. She was tachycardic sinus in the emergency room to 113. He was also found to be hypoxic and required 4 L nasal cannula to maintain an O2 sat of 96%. Patient notes that she quit smoking 40 days ago as she thought it was about time to do so. She was not having any symptoms at that time. Also of note she does drink about a fifth of vodka over a period of a week. Currently she is requiring 5L oxy mask down from 10L High flow to maintain sats. Overnight events: Pt spiked a Temp of 38.8 around 0346 this AM. Pt medicated with PO Tylenol. New orders for Blood cultures. Today Ms. Martha Calderon was lying comfortably in bed tolerating room air but with a very persistent productive cough and shortly was placed back to 4L O2 nasal canula. She denies headache, dizziness, sore throat, chest pain, abdominal pain, vomiting, constipation, and diarrhea. She is voiding and eliminating without difficulty. She reports painful cough, mild nausea and full body muscle aches throughout the night. Exam Vital Signs Vital Sign - Last Date Time Temp Pulse Resp B/P Pulse Ox O2 Delivery O2 Flow Rate FiO2 11/19/16 04:38 85 11/19/16 03:46 38.8 22 134/92 96 Nasal Cannula 4.00 11/16/16 07:55 50 Intake and Output 11/18/16 11/18/16 11/19/16 Cumulative From/Thru 15:00 23:00 07:00 11/13/16 17:33 - 11/19/16 06:35 Intake Total 640 ml 600 ml 05788 ml Output Total 300 ml 7577 ml Balance 640 ml 300 ml 6479 ml Intake Oral 640 ml 600 ml 7140 ml IV Total 6916 ml Output Urine Total 300 ml 7577 ml # Voids 4 3 11 # Bowel Movements 5 Exam General: Middle aged lady lying in bed with acute distress controlled with nasal canula on 5L down from High flow O2 at 10L, well-developed, well-nourished , appropriately interactive HEENT: Normocephalic, atraumatic. External ears without defect. Pupils equal, round, and reactive to light and accommodation. Anicteric sclerae, moist conjunctivae, and no lid lag. Oropharynx free of erythema and cobble stoning with moist mucosa. Neck: Supple with full range of motion. No jugular venous distension. No bruits. No lymphadenopathy or thyromegaly. Cardiovascular: Regular rate and rhythm with no murmurs, rubs, or gallops appreciated Pulmonary: Clear to auscultation bilaterally, no wheezes, rhonchi, rales. Normal respiratory effort with no use of accessory muscles. Abdomen: Bowel tones present. Soft, nontender, nondistended. No hepatosplenomegaly or masses appreciated. Extremities: No clubbing, cyanosis, edema, or lymphadenopathy appreciated. Skin: Normal temperature, turgor, and texture; no rash, ulcers, or subcutaneous nodules appreciated. Neurological: Cranial nerves grossly intact. Normal muscle strength, tone, and bulk. Reflexes, coordination, and sensory function within normal limits. No known gait impairment. Psychiatric: Normal mood and affect. Alert and oriented to person, place, and time. IVs and Medications Medications Reviewed: Medications were reviewed in detail Lab and Diagnostics Result Diagram: 11/19/1631411/19/16314 X-Rays, CTs and MRIs X-RAY CHEST ONE VIEW, PORTABLE IMPRESSION: Resolving multifocal pneumonia. Dictated by: Randall Potter M.D. on 11/16/2016 at 8:51 CT ANGIO CHEST PULMONARY EMBOLISM IMPRESSION: 1. No acute pulmonary embolus. 2. Diffuse patchy pulmonary opacities most confluent at the right apex. Differential considerations include multifocal pneumonia versus aspiration. 3. Small bilateral pleural effusions, likely reactive/infectious in nature. Short interval followup is recommended with resolution of the patient's symptoms to ensure there is no underlying pulmonary neoplasm. Dictated by: Miranda Kramer M.D. on 11/16/2016 at 8:58 X-RAY CHEST ONE VIEW IMPRESSION: No radiographic evidence for pneumonia. Dictated by: Griffin Alejo M.D. on 11/13/2016 at 18:48 X-RAY CHEST ONE VIEW IMPRESSION: Bilateral pneumonia. Dictated by: Carole Gibson MD, PhD on 11/14/2016 at 9:24 12-lead ECG Sinus rhythm at a rate of 102 with possible left atrial enlargement Cardiac Echo Impressions Echocardiogram Report Interpretation Summary The left ventricle is normal in size. The ejection fraction is estimated to be 60-65%. The right ventricle is normal in size and function. No significant valvular pathology seen. Additional Diagnostics [facility] DateTimeAnalyzed 03:38:00 -_ pH ____7.446 - 7.350 7.450 pCO2 ___38.5__ -mmHg 35.0 45.0 pO2 ___46.3__ -mmHg 69.0 116 HCO3- ___26.2__ -mmol/L 22.0 26.0 Assessment & Plan This is a 51-year-old female who does have a history of smoking but no previous respiratory issues who presents with 4 days of shortness of breath cough along with fevers and chills at home. Her evaluation in the emergency room does include a positive influenza PCR test. Chest x-ray did not reveal any acute infiltrates. She was found to have an elevated white count of 19.3 with 91% polys 2% lymphs. She was also found to have a low sodium of 129, lactic acid level of 1.7. Currently she is tolerating Room air with good saturations at times however she is currently back to 4L O2 nasal canula, which is a marked improvement from several day prior, down from 10 L High Flow O2. 1. Acute ARDS, present on admission. Improving. - Possibly underlying COPD exacerbation 2nd to Influenza. - CT chest on admission, results per above. No acute pulmonary embolus. Short interval followup is recommended with resolution of the patient's symptoms to ensure there is no underlying pulmonary neoplasm. - D-Dimer high 6.8. - PO2/FiO2 - 109 = Moderate on admission. - ECHO results per above. - Oxymask O2 down from 4L Currently. - Pulmonary following, time and recommendations appreciated. - Repeat CXR 11/19/16. - Guaifenesin and Tessalon pearls for cough. 2. Acute Influenza A with significant respiratory symptoms including acute hypoxia, present on admission. Improving. - Rapid Influenza screen positive. - Tamiflu 75mgj BID x 5 days. last dose (11/17/15). Started Tamiflu again (11/19/16) . - Respiratory Viral PCR positive for Influenza A. - Continued muscle aches and nightly fevers. Will not get repeat viral PCR at this time. 3. Acute hypoxic respiratory failure, present on admission. Active. - Possibly underlying mild COPD exacerbation 2nd to Influenza. - Continue to treat per above with O2 as needed. - ABGs per above. 4. Acute Pneumonia, present on admission. Improving. - Sputum Cx MSSA, however ID thought this was still unlikely. - Procalcitonin - 0.26 on admission. 0.12 - (11/19/16). - Sputum cultures - MSSA. - MRSA screen negative. - Strep pneumo Ag, Legionella pneu ab negative. - Discontinued Azithromycin, Continue IV Rocephin daily for now. - DuoNeb nebs every 4 hours and albuterol nebs when necessary. - Begin Taper Solu-Medrol 40 mg today and decrease by 10 daily. - Infectious disease following, time and recommendations appreciated. - Persistant nightly fever. Repeat blood cx (11/19/16). - Repeat sputum Cx. 5. Acute Sepsis, present on admission. Resolved. - Likely 2nd to respiratory source. - On admission criteria met: Tachycardic, tachypneic, Leukocytic 19.3, Currently (17.9 up from 14.5 11/15/16 ). - Treatment per above. 6. Chronic Alcohol Use disorder, present on admission. Active. - States that she has not drank since September. 7. Acute on Chronic Abnormal liver enzymes, present on admission. Improving. -Most likely secondary to EtOH abuse. 8. Acute mild diarrhea, not present on admission. Active. - IF loose stools persist, get C. diff. Acetaminophen for mild pain when necessary. Bowel regimen Senna and MiraLAX scheduled and PRN. Zofran when necessary for nausea and vomiting. SubQ heparin for now. SCDs in place. High risk medications: IV Ativan PRN. Disposition: Likely here for > 2 days due to ARDS and respiratory failure. Pain Evaluation: Adequate Pain Control GI Prophylaxis: H2 kathy VTE Prophylaxis: Sub-Q Heparin (Unfractionated) VTE Mechanical Devices: Intermittant Pneumatic CD Resuscitation Status: CPR: Attempt Resuscitation Attending Statement The patient was seen and examined together with Dr. Alexander on 11-19-16 and I agree with the history, exam and plan as outlined in the note above. NATASHA ALEXANDER DO Nov 19, 2016 06:50 Regina Smith MD Nov 20, 2016 17:33
[2016-11-19 18:31] LABS: APPEARANCE,URINE CLEAR (CLEAR,HAZY); COLOR,URINE YELLOW (YELLOW); OCCULT BLOOD,URINE NEGATIVE (NEGATIVE); PH,URINE 7.5 (5.0-8.0)
--- NOTE | 2016-11-19 19:20 | NUR ---
Cough/SOB Cardiac: Pt denies chest pain, Tele: SR 80-90's Resp: Pt has SOB with coughing fits. Cough is mostly dry. Sputum sample ordered this AM. Pt having difficulty producing sputum. Small sample finally sent down this afternoon. SPO2 92-97% on 6L NC.Titrated O2 down to 4 this AM, but pt desats with cough and reports pain with cough. This afternoon pt titrated down off O2. SPO2 down to 88% after 30 min. O2 restarted. SPO2 93% on 6L NC at end of shift. Tesselon pearls and lozenges given for cough. GI/: Pt denies n/v/d this AM. Neuro: A&O x3, SHARIF Patient is restless and anxious. Reports she feels worse this AM, but felt much refreshed after a shower this afternoon. tylenol given for pain this AM. CIWA 6.
[2016-11-19] MEDS: Ondansetron 2 mg/mL 2 mL Inj IVPUSH PRN (19:54)
[2016-11-19] MEDS: cefTRIAXone Inj 2,000 MG in IV Premix 1 EACH IV SCH (20:55)
[2016-11-19] MEDS ORDERED: Magnesium Sulf 2 Gm/50mL Water 2 GM in IV Premix 1 EACH IV ONE (21:00)
--- NOTE | 2016-11-19 23:58 | NUR ---
PAIN/NAUSEA Pt c/o chest pain at beginning of shift r/t persistent coughing and received 1mg diladid. Pt anxious about pain management and stated that she had an episode the previous night of uncontrolled pain. Pt stated that her pain medication dosage was to be increased to 2mg q6. RN notified of pt concerns. Dr. Sheldon decided not to increase dosage and for pt's AM to increase dosage if need be. Pt's vitals stable, pt received 4mg Zofran for nausea with good results. Addendum: 11/20/16 at 0121 by MARCELINA BROWN RN Pt requested 1mg Diladid just before 0100 for chest pain r/t coughing. Pt slightly restless, but no other complaints at this time. Addendum: 11/20/16 at 0419 by MARCELINA BROWN RN Pt continued to complain of chest pain r/t persistent coughing. Pt requested cough lozenges, 650mg Tylenol for pain, and 4mg of Zofran for continued nausea. Addendum: 11/20/16 at 0619 by MARCELINA BROWN RN Last CIWA score of 2, no other issues noted.
[2016-11-20] VITALS (11 sets, daily range): BP systolic 108–127; BP diastolic 73–78; PULSE 71–95; RESP 18–28; O2SAT 90–97
[2016-11-20] MEDS: Sodium Chloride LOK Flush 10 mL Syringe IVFLUSH SCH ×3 (00:56→15:59)
[2016-11-20] MEDS: Ondansetron 2 mg/mL 2 mL Inj IVPUSH PRN (03:56)
[2016-11-20] MEDS: Benzocaine-Menthol Lozenge 2/Pkg PO PRN ×2 (03:57→20:29)
[2016-11-20 04:38] LABS: BASOPHILS % (AUTO) 0.1 % (0-3); EOSINOPHILS % (AUTO) 0.5 % (0-5); MONOCYTES % (AUTO) 10.5 % (4-12); Mean Corpuscular Hemoglobin 31.2 pg (27.0-35.0); Mean Corpuscular Volume 93.6 fL (81-100); NEUTROPHILS % (AUTO) 66.7 % (40-74); Platelet Count 341 bil/L (150-400)
[2016-11-20 04:51] LABS: Magnesium 1.9 mg/dL (1.6-2.6)
[2016-11-20] MEDS: Albuterol-Ipratropium 3 mL Inhalation Solution NEB SCH ×4 (06:00→20:58)
[2016-11-20] MEDS: Insulin LISPRO 300 Unit/3 mL Inj SUBQ SCH ×4 (08:00→20:39)
[2016-11-20] MEDS ORDERED: predniSONE 20 mg Tablet PO ONE (08:30)
--- NOTE | 2016-11-20 08:43 | DRSVH ---
PROCEDURE: X-RAY CHEST ONE VIEW, PORTABLE ([id number]) INDICATIONS: resp failure and ARDS TECHNIQUE: One view of the chest was acquired. COMPARISON: [facility], CR, XR CHEST 1VW (PORTABLE), 11/19/2016, 11:11. FINDINGS: Surgical changes and devices: None. Lungs and pleura: No pleural effusion or pneumothorax. Multifocal bilateral patchy consolidative opac ities appear mildly progressed since yesterday, within the right lung base left perihilar region, lef t upper lobe and right upper lobe Mediastinum: Mediastinal contours appear normal. Heart size is normal. Bones and chest wall: No suspicious bony lesions. Overlying soft tissues appear unremarkable. IMPRESSION: Mildly progressed, bilateral multifocal pneumonia since yesterday Dictated by: Sudheer Ramírez M.D. on 11/20/2016 at 8:41 Approved by: Sudheer Ramírez M.D. on 11/20/2016 at 8:41
[2016-11-20] MEDS: Heparin 5,000 Unit/mL Inj SUBQ SCH ×3 (08:52→20:39)
[2016-11-20] MEDS: Multivit-Miner-Folic Acid-Iron Tablet PO SCH (08:52)
[2016-11-20] MEDS: guaiFENesin 600 mg ER12 Tablet PO SCH ×2 (08:52→20:30)
--- NOTE | 2016-11-20 11:38 | PCM.PNMED ---
Subjective Date of Service Nov 20, 2016 Subjective Persists with a rather significant cough, and again had some fever. Sputum culture from yesterday unremakable. CXR significantly improved from admission but still abnormal. Exam Vital Signs SKIN; dry, no rash or session, IV sites good with our infection EYES; EDIL, eom intact ENMT; well hydrated with out lesions CV; No rub or mummers, regular Lungs; pretty good air movement, some end expiatory wheezes, very corse GI, belly soft and non tender, benign Neur; calm, no focal neuro deficits, cn 2-12 intact Vital Sign - Last Date Time Temp Pulse Resp B/P Pulse Ox O2 Delivery O2 Flow Rate FiO2 11/20/16 10:00 74 20 93 Nasal Cannula 4.50 11/20/16 08:39 37.1 127/73 11/16/16 07:55 50 Intake and Output 11/19/16 11/19/16 11/20/16 Cumulative From/Thru 15:00 23:00 07:00 11/13/16 17:33 - 11/20/16 06:29 Intake Total 1136 ml 928 ml 44875 ml Output Total 500 ml 400 ml 8477 ml Balance 636 ml 528 ml 7643 ml Intake Oral 1136 ml 818 ml 9094 ml IV Total 110 ml 7026 ml Output Urine Total 500 ml 400 ml 8477 ml # Voids 11 # Bowel Movements 5 Lab and Diagnostics Result Diagram: 11/20/16 0350 11/20/16 0350 X-Rays, CTs and MRIs X-RAY CHEST ONE VIEW, PORTABLE IMPRESSION: Resolving multifocal pneumonia. Dictated by: Randall Potter M.D. on 11/16/2016 at 8:51 CT ANGIO CHEST PULMONARY EMBOLISM IMPRESSION: 1. No acute pulmonary embolus. 2. Diffuse patchy pulmonary opacities most confluent at the right apex. Differential considerations include multifocal pneumonia versus aspiration. 3. Small bilateral pleural effusions, likely reactive/infectious in nature. Short interval followup is recommended with resolution of the patient's symptoms to ensure there is no underlying pulmonary neoplasm. Dictated by: Miranda Kramer M.D. on 11/16/2016 at 8:58 X-RAY CHEST ONE VIEW IMPRESSION: No radiographic evidence for pneumonia. Dictated by: Griffin Alejo M.D. on 11/13/2016 at 18:48 X-RAY CHEST ONE VIEW IMPRESSION: Bilateral pneumonia. Dictated by: Carole Gibson MD, PhD on 11/14/2016 at 9:24 12-lead ECG Sinus rhythm at a rate of 102 with possible left atrial enlargement Cardiac Echo Impressions Echocardiogram Report Interpretation Summary The left ventricle is normal in size. The ejection fraction is estimated to be 60-65%. The right ventricle is normal in size and function. No significant valvular pathology seen. Additional Diagnostics [facility] AB DateTimeAnalyzed 03:38:00 -_ pH ____7.446 - 7.350 7.450 pCO2 ___38.5__ -mmHg 35.0 45.0 pO2 ___46.3__ -mmHg 69.0 116 HCO3- ___26.2__ -mmol/L 22.0 26.0 Assessment & Plan This is a 51-year-old female who does have a history of smoking but no previous respiratory issues who presents with 4 days of shortness of breath cough along with fevers and chills at home. Her evaluation in the emergency room does include a positive influenza PCR test. Chest x-ray did not reveal any acute infiltrates. She was found to have an elevated white count of 19.3 with 91% polys 2% lymphs. She was also found to have a low sodium of 129, lactic acid level of 1.7. Currently she is tolerating Room air with good saturations at times however she is currently back to 4L O2 nasal canula, which is a marked improvement from several day prior, down from 10 L High Flow O2. 1. Acute ARDS, present on admission. resolved - Possibly underlying COPD exacerbation 2nd to Influenza. - CT chest on admission, results per above. No acute pulmonary embolus. Short interval followup is recommended with resolution of the patient's symptoms to ensure there is no underlying pulmonary neoplasm. 2. Acute Influenza A with significant respiratory symptoms including acute hypoxia, present on admission. Improving. - Rapid Influenza screen positive. - Tamiflu 75mgj BID x 5 days. last dose (11/17/15). Started Tamiflu again (11/19/16) , continue for now - Respiratory Viral PCR positive for Influenza A. - Continued muscle aches and nightly fevers. Will not get repeat viral PCR at this time. 3. Acute hypoxic respiratory failure, present on admission. Active. - Possibly underlying mild COPD exacerbation 2nd to Influenza and/or bacterial pneumonia (MSSA) - Continue to treat per above with O2 as needed. 4. Acute Pneumonia, present on admission. Improving. - Sputum Cx MSSA, however ID thought this was still unlikely. - Procalcitonin - 0.26 on admission. 0.12 - (11/19/16). - Sputum cultures - MSSA. - for today continue with rocephin,, day8, consider stopin at day 10 - procal in am,, no CXR tomorrow 5. Acute Sepsis, present on admission. Resolved. - Likely 2nd to respiratory source. - On admission criteria met: Tachycardic, tachypneic, Leukocytic 19.3, Currently (17.9 up from 14.5 11/15/16 ). 6. Chronic Alcohol Use disorder, present on admission. Active. - States that she has not drank since September. - valium for potential withdrawal - Thiamin PO 7. Acute on Chronic Abnormal liver enzymes, present on admission. Improving. -Most likely secondary to EtOH use. 8. Acute mild diarrhea, not present on admission. resolved. - IF loose stools persist, get C. diff. Acetaminophen for mild pain when necessary. Bowel regimen Senna and MiraLAX scheduled and PRN. Zofran when necessary for nausea and vomiting. SubQ heparin for now. SCDs in place. High risk medications: IV Ativan PRN. Disposition: Likely here for > 2 days due to ARDS and respiratory failure. GI Prophylaxis: H2 kathy VTE Prophylaxis: Sub-Q Heparin (Unfractionated) VTE Mechanical Devices: Intermittant Pneumatic CD Resuscitation Status: CPR: Attempt Resuscitation Regina Smith MD Nov 20, 2016 11:38
[2016-11-20] MEDS: Codeine-guaiFENesin 10 mL Syrup PO PRN ×3 (11:47→20:38)
--- NOTE | 2016-11-20 19:12 | NUR ---
Cough/Pain/fever Pt reports she is feeling much better this afternoon. No fever at afternoon vitals. Cardiac: Denies chest pain, Tele SR 100's Resp: Pt reports SOB this AM. SPO2 ranges from 97% down to 88% on 4.5L NC. Pt desats with coughing fits. GI/: Pt reports mild nausea this AM, but does not want meds. Pt received Ondansetron for nausea last night per report. Tolerated PO well all day with no complaints and healthy appetite. Neuro: Pt A&Ox3 SHARIF
[2016-11-20] MEDS: cefTRIAXone Inj 2,000 MG in IV Premix 1 EACH IV SCH (21:00)
--- NOTE | 2016-11-20 23:01 | NUR ---
OXYGENATION Pt sating at 92% on room air. De-sats slightly with coughing fits 85-91%. Pt continues without O2 with no issues. Pt c/o chest pain r/t coughing fits. Received 1mg Diladid , no reports of N/V/D. Pt reports feeling much better and is wanting to discharge tomorrow.
[2016-11-21] VITALS (12 sets, daily range): BP systolic 103–138; BP diastolic 61–79; PULSE 72–106; RESP 18–20; O2SAT 88–100
[2016-11-21] MEDS: Sodium Chloride LOK Flush 10 mL Syringe IVFLUSH SCH ×3 (00:19→17:39)
[2016-11-21] MEDS: Codeine-guaiFENesin 10 mL Syrup PO PRN ×4 (06:45→22:27)
[2016-11-21] MEDS: guaiFENesin 600 mg ER12 Tablet PO SCH ×2 (07:59→19:52)
[2016-11-21] MEDS: Multivit-Miner-Folic Acid-Iron Tablet PO SCH (07:59)
[2016-11-21] MEDS: Albuterol-Ipratropium 3 mL Inhalation Solution NEB SCH ×4 (08:03→19:24)
[2016-11-21] MEDS: Insulin LISPRO 300 Unit/3 mL Inj SUBQ SCH ×4 (08:06→22:38)
[2016-11-21] MEDS: Heparin 5,000 Unit/mL Inj SUBQ SCH ×3 (08:07→22:48)
--- NOTE | 2016-11-21 13:29 | PROG NOTE ---
[address] [address] PROGRESS NOTE PATIENT: MALICK SUAREZ : 1965 MR#: [id number] ADMIT: 11/13/2016 JOB ID: [id number] DATE: 11/21/2016 INFECTIOUS DISEASE FOLLOWUP NOTE: REASON FOR FOLLOWUP: Influenza complicated by possible Staph aureus pneumonia or tracheobronchitis. INTERVAL HISTORY: Recall that this is a 51-year-old woman with a longstanding smoking and drinking history who was admitted here now nine days ago. Since I last saw the patient three days ago she has had a recrudescence of what appeared to be primarily influenza symptoms. She reports she has developed a dry but barking cough as well as worsening sore throat, myalgias, and arthralgias. A couple days ago, as she was improving, she completed her initial course of oseltamivir and it was stopped. It has since been restarted. Also note that the patient has received a course of azithromycin and is currently receiving ceftriaxone for her MSSA in the respiratory tract. PHYSICAL EXAMINATION: Reveals an afebrile woman temp 36.6, pulse 106, blood pressure 103/70, respiratory rate 20, saturating 93% on room air. Examination of the head is unremarkable. The oral cavity with mild pharyngitis. Lungs fairly clear, even posteriorly. Cardiac tones regular rate and rhythm, without murmur. The abdomen is negative. LABORATORY DATA: White count is 14,000, which has really never changed since admission. Her white count on November 13 was 15,000. It has bounced to 18, and declined as low was 13, and basically has never changed. This white count has a completely normal differential attached to it and I do not think it reflects infection. Creatinine is 0.42. LFTs are normal. The last two procalcitonins on November 19 and , today, are negative. Note that she has never had a procalcitonin more than 0.37 out of 6 separate measurements. No new serologies are available. Last sputum was collected two days ago and showed moderate polys without organisms. We have negative blood cultures and a sputum which grew some Staph aureus back on November 13, now nine days ago. IMAGING: Our most recent imaging was done yesterday and shows multifocal infiltrates. IMPRESSION: This is an odd case of a woman who presented with pretty classic influenza A in the setting of bilateral infiltrates and her history of heavy drinking and smoking. She was confirmed to have influenza and was treated with a course of oseltamivir, with some improvement. She was also started on therapy for MSSA pulmonary infection despite her relatively normal procalcitonins based on a sputum culture that grew MSSA. After some improvement the oseltamivir was stopped as she had completed a five day course and then she started to decline again, with fairly classic influenza symptoms. The oseltamivir has now been restarted. She remains on ceftriaxone and has already finished several days of azithromycin, which is undoubtedly still present to some degree. At this point, it seems to me as if the patient is having a recrudescence of her influenza. I see little evidence here of an ongoing invasive bacterial pneumonia as her white count has a completely normal diff and the elevated white count is almost certainly explained by the steroids she had received earlier in this admission. The procalcitonins likewise are negative and she has been on reasonable treatment for her MSSA pulmonary process, be that tracheobronchitis or pneumonia, or just. colonization, for several days now. RECOMMENDATIONS: 1. I would continue with a 2nd course of influenza therapy. 2. Will go ahead and complete the ceftriaxone here in the next day or two, as she will then have received a total 10 day course. 3. The patient seems overall better to me than when I last saw her three days ago, but I agree some continued observation on an inpatient basis at least for next day or two may be reasonable.
[2016-11-21] MEDS: Ondansetron 2 mg/mL 2 mL Inj IVPUSH PRN (15:17)
--- NOTE | 2016-11-21 17:45 | PCM.PNMED ---
Subjective Date of Service Nov 21, 2016 Subjective Ms. Martha Calderon is a 51-year-old lady who has a history of smoking but no previous respiratory issues, presents with 4 days of shortness of breath cough along with fevers and chills at home. She was seen in the urgent care earlier this morning and was told she had a negative influenza test. Apparently they thought was a false negative so she was given Tamiflu prednisone and albuterol. However her symptoms worsened and she presented to the emergency room this evening. Her evaluation in the emergency room does include a positive influenza PCR test. Chest x-ray did not reveal any acute infiltrates. She was found to have an elevated white count of 19.3 with 91% polys 2% lymphs. She was also found to have a low sodium of 129, lactic acid level of 1.7. Protein was less than 0.010. She was tachycardic sinus in the emergency room to 113. He was also found to be hypoxic and required 4 L nasal cannula to maintain an O2 sat of 96%. Patient notes that she quit smoking 40 days ago as she thought it was about time to do so. She was not having any symptoms at that time. Also of note she does drink about a fifth of vodka over a period of a week. Currently she is currently on RA and maintaining O2 sats comfortably. Overnight events: Mrs. Calderon had an uneventful evening without fever or body aches. No diarrhea overnight and no nausea. Informed this AM - Patient has Very important time sensitive housing assistance meeting Tuesday - 11/22/16. IF no acute overnight events Consider early discharge planning. Today Ms. Martha Calderon was lying comfortably in bed tolerating room air. Cough persists but has improved markedly. She denies headache, dizziness, sore throat , chest pain, abdominal pain, vomiting, constipation, and diarrhea. She is voiding and eliminating without difficulty. Exam Vital Signs Vital Sign - Last Date Time Temp Pulse Resp B/P Pulse Ox O2 Delivery O2 Flow Rate FiO2 11/21/16 08:03 101 20 88 Room Air 11/21/16 03:56 37.0 135/79 11/20/16 15:27 2.00 11/16/16 07:55 50 Intake and Output 11/20/16 11/20/16 11/21/16 Cumulative From/Thru 15:00 23:00 07:00 11/13/16 17:33 - 11/21/16 05:53 Intake Total 1488 ml 86477 ml Output Total 2 ml 8479 ml Balance 1486 ml 9129 ml Intake Oral 1438 ml 42989 ml IV Total 50 ml 7076 ml Output Urine Total 2 ml 8479 ml # Voids 11 # Bowel Movements 0 5 Exam General: Middle aged lady lying in bed with acute distress controlled with nasal canula on 5L down from High flow O2 at 10L, well-developed, well-nourished , appropriately interactive HEENT: Normocephalic, atraumatic. External ears without defect. Pupils equal, round, and reactive to light and accommodation. Anicteric sclerae, moist conjunctivae, and no lid lag. Oropharynx free of erythema and cobble stoning with moist mucosa. Neck: Supple with full range of motion. No jugular venous distension. No bruits. No lymphadenopathy or thyromegaly. Cardiovascular: Regular rate and rhythm with no murmurs, rubs, or gallops appreciated Pulmonary: Clear to auscultation bilaterally, no wheezes, rhonchi, rales. Normal respiratory effort with no use of accessory muscles. Abdomen: Bowel tones present. Soft, nontender, nondistended. No hepatosplenomegaly or masses appreciated. Extremities: No clubbing, cyanosis, edema, or lymphadenopathy appreciated. Skin: Normal temperature, turgor, and texture; no rash, ulcers, or subcutaneous nodules appreciated. Neurological: Cranial nerves grossly intact. Normal muscle strength, tone, and bulk. Reflexes, coordination, and sensory function within normal limits. No known gait impairment. Psychiatric: Normal mood and affect. Alert and oriented to person, place, and time. IVs and Medications Medications Reviewed: Medications were reviewed in detail Lab and Diagnostics Result Diagram: 11/20/16 0350 11/20/16 0350 X-Rays, CTs and MRIs X-RAY CHEST ONE VIEW, PORTABLE IMPRESSION: Resolving multifocal pneumonia. Dictated by: Randall Potter M.D. on 11/16/2016 at 8:51 CT ANGIO CHEST PULMONARY EMBOLISM IMPRESSION: 1. No acute pulmonary embolus. 2. Diffuse patchy pulmonary opacities most confluent at the right apex. Differential considerations include multifocal pneumonia versus aspiration. 3. Small bilateral pleural effusions, likely reactive/infectious in nature. Short interval followup is recommended with resolution of the patient's symptoms to ensure there is no underlying pulmonary neoplasm. Dictated by: Miranda Kramer M.D. on 11/16/2016 at 8:58 X-RAY CHEST ONE VIEW IMPRESSION: No radiographic evidence for pneumonia. Dictated by: Griffin Alejo M.D. on 11/13/2016 at 18:48 X-RAY CHEST ONE VIEW IMPRESSION: Bilateral pneumonia. Dictated by: Carole Gibson MD, PhD on 11/14/2016 at 9:24 12-lead ECG Sinus rhythm at a rate of 102 with possible left atrial enlargement Cardiac Echo Impressions Echocardiogram Report Interpretation Summary The left ventricle is normal in size. The ejection fraction is estimated to be 60-65%. The right ventricle is normal in size and function. No significant valvular pathology seen. Additional Diagnostics [facility] AB DateTimeAnalyzed 03:38:00 -_ pH ____7.446 - 7.350 7.450 pCO2 ___38.5__ -mmHg 35.0 45.0 pO2 ___46.3__ -mmHg 69.0 116 HCO3- ___26.2__ -mmol/L 22.0 26.0 Assessment & Plan This is a 51-year-old female who does have a history of smoking but no previous respiratory issues who presents with 4 days of shortness of breath cough along with fevers and chills at home. Her evaluation in the emergency room does include a positive influenza PCR test. Chest x-ray did not reveal any acute infiltrates. She was found to have an elevated white count of 19.3 with 91% polys 2% lymphs. She was also found to have a low sodium of 129, lactic acid level of 1.7. Currently she is tolerating Room air with good saturations at times however she is currently back to 4L O2 nasal canula, which is a marked improvement from several day prior, down from 10 L High Flow O2. 1. Acute ARDS, present on admission. Resolved. - Possibly underlying COPD exacerbation 2nd to Influenza. - CT chest (11/16/16) No acute PE. Short interval followup is recommended with resolution of the patient's symptoms to ensure there is no underlying pulmonary neoplasm. - Close follow up with PCP for several days following discharge tomorrow (11/22/16 ). 2. Acute Influenza A with significant respiratory symptoms including acute hypoxia, present on admission. Resolved. - Respiratory Viral PCR positive for Influenza A. - Tamiflu 75mgj BID x 5 days. last dose (11/17/15). Started Tamiflu again (11/19/16) , continue for another full course as outpatient. - This was an abnormally long course of influenza. Discussed with ID, Will test for HIV and Hepatitis - with PCP to follow up. 3. Acute hypoxic respiratory failure, present on admission. Resolved. - Possibly underlying mild COPD exacerbation 2nd to Influenza and/or bacterial pneumonia (MSSA) - Continue to treat per above with O2 as needed. 4. Acute Pneumonia, present on admission. Improving. - Sputum Cx MSSA, however ID thought this was still unlikely. - Rocephin (11/16/16) Per ID stop at day 10. - Procalcitonin 0.05 (11/21/16) 5. Acute Sepsis, present on admission. Resolved. - Likely 2nd to respiratory source. - On admission criteria met: Tachycardic, tachypneic, Leukocytic 19.3, Currently (17.9 up from 14.5 11/15/16 ). 6. Chronic Alcohol Use disorder, present on admission. Active. - States that she has not drank since September. - Valium for potential withdrawal. - Thiamin PO. 7. Acute on Chronic Abnormal liver enzymes, present on admission. Improving. -Most likely secondary to EtOH use. Acetaminophen for mild pain when necessary. Bowel regimen Senna and MiraLAX scheduled and PRN. Zofran when necessary for nausea and vomiting. SubQ heparin for now. SCDs in place. High risk medications: IV Ativan PRN. Social: Patient has Very important time sensitive housing assistance meeting Tuesday - 11/22/16. IF no acute overnight event Consider early discharge planning. Disposition: Likely home tomorrow. Pain Evaluation: Adequate Pain Control GI Prophylaxis: H2 kathy VTE Prophylaxis: Sub-Q Heparin (Unfractionated) VTE Mechanical Devices: Intermittant Pneumatic CD Resuscitation Status: CPR: Attempt Resuscitation Attending Statement The patient was seen and examined together with Dr. Alexander on 11-21-16 and I agree with the history, exam and plan as outlined in the note above. NATASHA ALEXANDER DO Nov 21, 2016 08:11 Regina Smith MD Nov 22, 2016 16:10
--- NOTE | 2016-11-21 17:57 | NUR ---
Nausea/Cough/Pain Cardiac: Denies chest pain except for pleural pain associated with cough, Tele SR 70's-80s into 100-110's with activity. Resp: Pt sating at 92%-94% on RA, desats with coughing fits down to 86-91%, but recovers quickly. GI/: Pt reports mild nausea this afternoon. Zofran given, nausea resolved pt tolerating PO at dinner. Neuro: Pt A&Ox3 SHARIF. Pt requested that dilaudid be upped from 1mg to 2mg. informed, request denied. Pain coverage with current pain meds seems adequate at this time and pt was accepting of decision.
[2016-11-21] MEDS: Benzocaine-Menthol Lozenge 2/Pkg PO PRN ×2 (19:58→22:48)
[2016-11-21] MEDS: cefTRIAXone Inj 2,000 MG in IV Premix 1 EACH IV SCH (21:11)
[2016-11-22] MEDS: Sodium Chloride LOK Flush 10 mL Syringe IVFLUSH SCH ×2 (01:15→08:43)
[2016-11-22 04:12] VITALS: BP 97/65; PULSE 81; RESP 20; O2SAT 87
[2016-11-22 04:13] VITALS: O2SAT 94
[2016-11-22] MEDS: Codeine-guaiFENesin 10 mL Syrup PO PRN (04:16)
[2016-11-22] MEDS: Benzocaine-Menthol Lozenge 2/Pkg PO PRN (04:17)
[2016-11-22 04:42] LABS: BASOPHILS % (AUTO) 0.2 % (0-3); EOSINOPHILS % (AUTO) 1.9 % (0-5); MONOCYTES % (AUTO) 7.7 % (4-12); Mean Corpuscular Hemoglobin 30.9 pg (27.0-35.0); Mean Corpuscular Volume 95.3 fL (81-100); NEUTROPHILS % (AUTO) 60.7 % (40-74); Platelet Count 395 bil/L (150-400)
--- NOTE | 2016-11-22 06:10 | NUR ---
Resp Desat No c/o SOB, RA sats 92-100% while awake. Pt desat while sleeping on RA, sats around 0400 down to 87%. O2 @ 3L NC applied O2 sats increased to 94%. Bilateral lung sounds are diminished and course with rhonchi and occ wheezes. VS stable and afebrile. Pt up independently in room, gait steady.
[2016-11-22 08:00] VITALS: PULSE 75
[2016-11-22] MEDS: Insulin LISPRO 300 Unit/3 mL Inj SUBQ SCH (08:00)
[2016-11-22 08:22] VITALS: BP 107/72; PULSE 79; RESP 18; O2SAT 88
[2016-11-22 08:30] VITALS: PULSE 83; RESP 20; O2SAT 90
[2016-11-22] MEDS: Albuterol-Ipratropium 3 mL Inhalation Solution NEB SCH (08:30)
[2016-11-22] MEDS: Multivit-Miner-Folic Acid-Iron Tablet PO SCH (08:43)
[2016-11-22] MEDS: Heparin 5,000 Unit/mL Inj SUBQ SCH (08:43)
[2016-11-22] MEDS: guaiFENesin 600 mg ER12 Tablet PO SCH (08:43)
[2016-11-22] MEDS ORDERED: Codeine-APAP 30-300 mg Tablet PO PRN (09:30)
[2016-11-22 10:41] VITALS: BP 117/79; PULSE 96; RESP 20; O2SAT 95
--- NOTE | 2016-11-22 10:51 | NUR ---
Activity/SpO2 Pt ambulated around nurse unit on RA, SpO2 92-94%, pt denied dizziness or SOB while ambulating, Stating "I feel good". Ongoing care.
--- NOTE | 2016-11-22 10:56 | PCM.DIMED ---
SARA MARROQUIN DO 11/22/16 1056: Discharge Instructions Date of Service Nov 22, 2016 Dates of Hospitalization Nov 13, 2016 at 20:53 Discharge Diagnosis Discharge Diagnosis Acute sepsis due to Pneumonia Acute hypoxic respiratory failure Diet No restrictions Activity No restrictions Call your provider Fever or Chills, Shortness of breath, Chest pain, Weakness (unilateral) Patient Instructions Continue to you your incentive spirometer device to help with clearing your lungs Recommend Miralax/OTC stool softener for constipation Continue Protonix to help your stomach heal Tylenol with codeine every 6 hours by mouth for pain and cough suppression Guaifenesin once daily to help clear your lungs Should you have worsening symptoms of shortness of breath, fainting, fever, chills, night sweats please make an appointment with you PCP sooner or seek urgent medical care. Follow up with your PCP within two weeks Follow-up plan With PCP in two weeks Follow-up with PCP in: 2 weeks Kevan Belle MD 11/23/16 1827: Discharge Instructions Attending's Statement The patient was seen and examined together with Dr. Marroquin on 11/22/2016 and I agree with the history, exam and plan as outlined in the note above. . SARA MARROQUIN DO Nov 22, 2016 10:56 Kevan Belle MD Nov 23, 2016 18:27
[2016-11-22] MEDS ORDERED: BENZ100C8 PO (11:00)
[2016-11-22] MEDS ORDERED: ALBU2.5V4 NEB (11:00)
[2016-11-22] MEDS ORDERED: PANT40TA2 PO (11:00)
[2016-11-22] MEDS ORDERED: ACET1TAB42 PO (11:00)
[2016-11-22] MEDS ORDERED: GUAI600T86 PO (11:00)
[2016-11-22] MEDS ORDERED: ONDA8TAB10 PO (11:00)
[2016-11-22] MEDS ORDERED: IPRA3AMP NEB (11:00)
--- NOTE | 2016-11-22 11:22 | NUR ---
Social Work Note: Discharge Data& Assessment: EMR reviewed. Per pt is medically improved and ready to discharge home via POV. Martha Calderon is a 51 year old female admitted on 11/13/2017 for influenza A and hypoxia. Per pt is ready for discharge. SW met with pt at bedside to confirm discharge plan and assess for any unmet needs. Pt confirmed her sister will be coming to transport her home today. Pt denies any other needs. No other discharge needs identified. Plan: Per pt is medically improved and ready to discharge home via POV.Pt confirmed her sister will be coming to transport her home today. Pt denies any other needs. No other discharge needs identified. DOMENIC Clark
--- NOTE | 2016-11-22 11:47 | PROG NOTE ---
[address] [address] PROGRESS NOTE PATIENT: MALICK SUAREZ : 1965 MR#: [id number] ADMIT: 11/13/2016 JOB ID: [id number] DATE: 11/22/2016 REASON FOR FOLLOW UP: Influenza complicated by MSSA respiratory tract infection. DATE: INTERVAL HISTORY: The patient reports that her breathing has improved considerably overnight. She still has a nonproductive, rather brassy cough, but no associated fevers, chills or shortness of breath. She is now off nasal oxygen, saturating well and feels like she is ready to leave. PHYSICAL EXAMINATION: Reveals an afebrile woman. Temp 36.7, pulse 96, respiratory rate 18 and nonlabored. Blood pressure 117/79. She is saturating well on room air. No acute distress. Oral cavity negative. No pharyngitis. Lungs: Quite clear today, the best they have sounded throughout her long stay. No skin rash. No other abnormalities. LABORATORIES: Include a white count of 11,000, which is steadily improving. Creatinine 0.45. LFTs are normal. Albumin 2.8. Procalcitonin repeat today is 0. No new micro is available. Blood cultures done on the are negative. IMPRESSION: This patient had influenza A which was complicated by an methicillin-sensitive Staphylococcus aureus tracheobronchitis or pneumonia. At this point, she is considerably better and I think there is no longer any indication for any antibacterial agents. Furthermore, it appears the patient is ready for discharge and that is being planned. Whether or not she needs anymore oseltamivir is unclear, but at this point, I think it is not likely. RECOMMENDATIONS: 1. We can discontinue all antibacterial agents. 2. The patient can be discharged at any time. 3. Whether or not to complete a second 5-day course of Tamiflu is unclear. Recall that yesterday we were concerned she was having some sort of recrudescence of influenza, but today she looks quite well. I think it is probably reasonable to discharge her without any antiviral or antibacterial agents and watch her closely. 4. ID will be signing off.
--- NOTE | 2016-11-22 12:14 | NUR ---
Discharge of patient Reviewed discharge instructions with patient. Patient verbalized understanding. Pt discharged via wheelchair with prescriptions and instructions. IV and Telemetry previously discontinued. Patient left hospital with sister to home self care.
[2016-11-23 04:08] LABS: Hepatitis A Antibody IgM Negative (Negative); Hepatitis B Core Antibody IgM Negative (Negative)
--- NOTE | 2017-01-10 17:31 | PCM.DC.MED ---
Discharge Summary Date of Service Jan 10, 2017 Dates of Hospitalization Date of Hospital Admission Nov 13, 2016 at 20:53 Date of Discharge: Nov 22, 2016 Providers: Admitting Physician: Jen Sheldon MD Primary Care Physician: Sugar Elam Attending Physician: Jen Sheldon MD Diagnosis at Time of Discharge Diagnosis at Time of Discharge Acute sepsis due to Pneumonia Acute hypoxic respiratory failure Consultations Infectious Disease Pulmonology Procedures XRay, CTs & MRIs X-RAY CHEST ONE VIEW, PORTABLE IMPRESSION: Resolving multifocal pneumonia. Dictated by: Randall Potter M.D. on 11/16/2016 at 8:51 CT ANGIO CHEST PULMONARY EMBOLISM IMPRESSION: 1. No acute pulmonary embolus. 2. Diffuse patchy pulmonary opacities most confluent at the right apex. Differential considerations include multifocal pneumonia versus aspiration. 3. Small bilateral pleural effusions, likely reactive/infectious in nature. Short interval followup is recommended with resolution of the patient's symptoms to ensure there is no underlying pulmonary neoplasm. Dictated by: Miranda Kramer M.D. on 11/16/2016 at 8:58 X-RAY CHEST ONE VIEW IMPRESSION: No radiographic evidence for pneumonia. Dictated by: Griffin Alejo M.D. on 11/13/2016 at 18:48 X-RAY CHEST ONE VIEW IMPRESSION: Bilateral pneumonia. Dictated by: Carole Gibson MD, PhD on 11/14/2016 at 9:24 ECG 12 Lead Sinus rhythm at a rate of 102 with possible left atrial enlargement Cardiac Echo Impression Echocardiogram Report Interpretation Summary The left ventricle is normal in size. The ejection fraction is estimated to be 60-65%. The right ventricle is normal in size and function. No significant valvular pathology seen. Other Diagnostics [facility] DateTimeAnalyzed 03:38:00 -_ pH ____7.446 - 7.350 7.450 pCO2 ___38.5__ -mmHg 35.0 45.0 pO2 ___46.3__ -mmHg 69.0 116 HCO3- ___26.2__ -mmol/L 22.0 26.0 Brief History Coppied from H&P "This is a 51-year-old female who does have a history of smoking but no previous respiratory issues who presents with 4 days of shortness of breath cough along with fevers and chills at home. She was seen in the urgent care earlier this morning and was told she had a negative influenza test. Apparently they thought was a false negative so she was given Tamiflu prednisone and albuterol. However her symptoms worsened and she presented to the emergency room this evening. Her evaluation in the emergency room does include a positive influenza PCR test. Chest x-ray did not reveal any acute infiltrates. She was found to have an elevated white count of 19.3 with 91% polys 2% lymphs. She was also found to have a low sodium of 129, lactic acid level of 1.7. Protein was less than 0.010. She was tachycardic sinus in the emergency room to 113. He was also found to be hypoxic and required 4 L nasal cannula to maintain an O2 sat of 96%. Patient notes that she quit smoking 40 days ago as she thought it was about time to do so. She was not having any symptoms at that time. Also of note she does drink about a fifth of vodka over a period of a week. She denies ever going through alcohol withdrawal symptoms after stopping for a few days." Hospital Course 1. Acute ARDS, present on admission. Resolved. - Possibly underlying COPD exacerbation 2nd to Influenza. - CT chest (11/16/16) No acute PE. Short interval followup is recommended with resolution of the patient's symptoms to ensure there is no underlying pulmonary neoplasm. - Close follow up with PCP for several days following discharge (11/22/16). 2. Acute Influenza A with significant respiratory symptoms including acute hypoxia, present on admission. Resolved. - Respiratory Viral PCR positive for Influenza A. - Tamiflu 75mgj BID x 5 days. last dose (1/4/16). Started Tamiflu again (11/19/16) , continue for another full course as outpatient. 3. Acute hypoxic respiratory failure, present on admission. Resolved. - Possibly underlying mild COPD exacerbation 2nd to Influenza and/or bacterial pneumonia (MSSA) - Continued to treat per above with O2 as needed. 4. Acute Pneumonia, present on admission. Improving. - Sputum Cx MSSA, however ID thought this was still unlikely. - Rocephin (11/16/16) Per ID stop at day 10. - Procalcitonin 0.05 (11/21/16) 5. Acute Sepsis, present on admission. Resolved. - Likely 2nd to respiratory source. - On admission criteria met: Tachycardic, tachypneic, Leukocytic 19.3, Currently (17.9 up from 14.5 11/15/16 ). 6. Chronic Alcohol Use disorder, present on admission. Active. - States that she has not drank since September. - Valium for potential withdrawal. completed - Thiamin PO.completed 7. Acute on Chronic Abnormal liver enzymes, present on admission. Improving. -Most likely secondary to EtOH use. Exam T 36 P 96 BP 117/79 RR 20 98% RA Exam General: Middle aged lady lying in bed with acute distress controlled with nasal canula on 5L down from High flow O2 at 10L, well-developed, well-nourished , appropriately interactive HEENT: Normocephalic, atraumatic. External ears without defect. Pupils equal, round, and reactive to light and accommodation. Anicteric sclerae, moist conjunctivae, and no lid lag. Oropharynx free of erythema and cobble stoning with moist mucosa. Neck: Supple with full range of motion. No jugular venous distension. No bruits. No lymphadenopathy or thyromegaly. Cardiovascular: Regular rate and rhythm with no murmurs, rubs, or gallops appreciated Pulmonary: Clear to auscultation bilaterally, no wheezes, rhonchi, rales. Normal respiratory effort with no use of accessory muscles. Abdomen: Bowel tones present. Soft, nontender, nondistended. No hepatosplenomegaly or masses appreciated. Extremities: No clubbing, cyanosis, edema, or lymphadenopathy appreciated. Skin: Normal temperature, turgor, and texture; no rash, ulcers, or subcutaneous nodules appreciated. Neurological: Cranial nerves grossly intact. Normal muscle strength, tone, and bulk. Reflexes, coordination, and sensory function within normal limits. No known gait impairment. Psychiatric: Normal mood and affect. Alert and oriented to person, place, and time. Test 11/13/16 17:59 11/13/16 19:03 11/13/16 23:50 11/14/16 07:15 Pro-B-Type Natriuretic Peptide 1204pg/mL (0-249) Urine Opiates Screen Positive Urine Methadone Screen Negative Urine Barbiturates Screen Negative Urine Amphetamines Screen Negative Urine Benzodiazepines Screen Negative Urine Cocaine Metabolite Screen Negative Urine Cannabinoids Screen Negative Band Neutrophils % 7% (1-5) Prothrombin Time 11.6sec (8.1-12.5) Prothromb Time International Ratio 1.08ratio Activated Partial Thromboplast Time 32.9sec (22.8-33.0) Hemoglobin A1c 6.3% (4.8-5.6) Troponin T 0.010ug/L (0.0-0.011) Vitamin B12 Level 376pg/mL (211-946) Alcohol, Quantitative < 10mg/dL (0-10) Lactic Acid Level 1.5mmol/L (0.4-2.0) Test 11/15/16 05:00 11/15/16 16:42 11/17/16 03:30 11/19/16 17:00 D-Dimer 6.8mg/L (<0.50) Urine Legionella pneumophilia Ag Negative (Negative) Phosphorus Level 1.3mg/dL (2.5-4.9) Urine Color Yellow (YELLOW) Urine Appearance Clear (CLEAR,HAZY) Urine pH 7.5 (5.0-8.0) Urine Specific [place] 1.010 (1.003-1.035) Urine Protein Negativemg/dL (NEG,TRACE) Urine Glucose (UA) 1000mg/dL (NEGATIVE) Urine Ketones Negativemg/dL (NEGATIVE) Urine Occult Blood Negative (NEGATIVE) Urine Nitrite Negative (NEGATIVE) Urine Bilirubin Negative (NEGATIVE) Urine Urobilinogen 1.0mg/dL (NORMAL) Urine Leukocyte Esterase Negative (NEGATIVE) Urine RBC 0-2/hpf (0-2) Urine WBC 0-5/hpf (0-5) Urine Epithelial Cells None/hpf (NONE-MOD) Urine Crystals None seen (NONE SEEN) Urine Bacteria Few/hpf (NONE-FEW) Urine Hyaline Casts None/lpf (NONE) Urine Granular Casts None seen (NONE SEEN) Urine Waxy Casts None seen (NONE SEEN) Urine Red Blood Cell Casts None seen (NONE SEEN) Urine White Blood Cell Casts None seen (NONE SEEN) Urine Mucus None seen (None Seen) Urine Trichomonas None seen (NONE SEEN) Urine Yeast None (NONE SEEN) Urinalysis Comment None Urine Culture Reflexed Not indicated Test 11/20/16 03:50 11/21/16 03:15 11/22/16 04:20 Magnesium Level 1.9mg/dL (1.6-2.6) Procalcitonin 0.05ng/mL (See Comment) White Blood Count 11.8th/mm3 (3.8-10.1) Red Blood Count 3.59mil/mm3 (3.90-5.20) Hemoglobin 11.1g/dL (12.0-15.6) Hematocrit 34.2% (35.0-46.0) Mean Corpuscular Volume 95.3fL (81-100) Mean Corpuscular Hemoglobin 30.9pg (27.0-35.0) Mean Corpuscular Hemoglobin Concent 32.5% (32.0-37.0) Red Cell Distribution Width 13.5% (12.3-15.4) Platelet Count 395bil/L (150-400) Neutrophils (%) (Auto) 60.7% (40-74) Lymphocytes (%) (Auto) 26.8% (14-46) Monocytes (%) (Auto) 7.7% (4-12) Eosinophils (%) (Auto) 1.9% (0-5) Basophils (%) (Auto) 0.2% (0-3) Sodium Level 136mEq/L (134-144) Potassium Level 4.1mEq/L (3.5-5.2) Chloride Level 96mEq/L (97-108) Carbon Dioxide Level 26mmol/L (18-29) Blood Urea Nitrogen 8mg/dL (6-24) Creatinine 0.45mg/dL (0.57-1.00) Estimat Glomerular Filtration Rate 210mL/min (>59) Glucose Level 130mg/dL (60-99) Calcium Level 8.4mg/dL (8.5-10.1) Total Bilirubin 0.2mg/dL (0.0-1.2) Aspartate Amino Transf (AST/SGOT) 17U/L (0-50) Alanine Aminotransferase (ALT/SGPT) 17U/L (0-32) Alkaline Phosphatase 74U/L (25-150) Total Protein 5.9g/dL (6.4-8.4) Albumin 2.8g/dL (3.4-5.0) Hepatitis A IgM Antibody Negative (Negative) Hepatitis B Surface Antigen Negative (Negative) Hepatitis B Core IgM Antibody Negative (Negative) Hepatitis C Antibody <0.1s/co ratio (0.0-0.9) Hepatitis C Comment Comment (.) HIV (1&2) Ag and Ab, 4th Generation Non reactive (Non Reactive) Microbiology Results INFLUENZA A PCR Final 11/16/16 Organism 1 INFLUENZA A H3 INFLUENZA A PCR DETECTED Discharge Medications Discharge Medications Guaifenesin (Guaifenesin ER) 600 Mg Tab.er.12h 1,200 MG PO Q12 Prescribed by: SARA MARIE DO Ipratropium/Albuterol Sulfate (Iprat-Albut 0.5-3(2.5) mg/3 mL Inhalant Soln) 3 Ml Ampul.neb 3 ML NEB QIDWA Prescribed by: SARA MARIE DO As needed Acetaminophen/Codeine 300-30mg (Acetaminophen/Codeine 300-30mg) 1 Each Tablet 1 TABLET PO Q4 PRN PRN For Moderate Pain Prescribed by: SARA MARIE DO Albuterol Neb Soln (Albuterol Neb Soln) 2.5 Mg/3 Ml Vial.neb 2.5 MG NEB Q2H PRN PRN For Shortness of Breath Prescribed by: SARA MARIE DO Benzonatate (Benzonatate) 100 Mg Capsule 100 MG PO TID PRN PRN For Cough Prescribed by: SARA MARIE DO Ondansetron ODT (Ondansetron ODT) 8 Mg Tab.rapdis 8 MG PO Q4H PRN PRN For Nausea Prescribed by: SARA MARIE DO Pantoprazole DR (Protonix) 40 Mg Tablet 40 MG PO HS PRN PRN For Dyspepsia or Heartburn Prescribed by: SARA MARIE DO Followup Plan Disposition: home Follow-up plan With PCP in two weeks Discharge Diet: No restrictions Discharge Activity: No restrictions Patient Instructions Continue to you your incentive spirometer device to help with clearing your lungs Recommend Miralax/OTC stool softener for constipation Continue Protonix to help your stomach heal Tylenol with codeine every 6 hours by mouth for pain and cough suppression Guaifenesin once daily to help clear your lungs Should you have worsening symptoms of shortness of breath, fainting, fever, chills, night sweats please make an appointment with you PCP sooner or seek urgent medical care. Follow up with your PCP within two weeks Follow-up with PCP in: 2 weeks Attending Statement The patient was seen and examined together with Dr. Marie on 11-22-16 and I agree with the history, exam and plan as outlined in the note above. Please note date of visit and service for this note is 11-22-16. SARA MARIE DO Jan 10, 2017 17:31 Regina Smith MD Jan 24, 2017 09:00
== END 2016-11-22 12:07 | disposition home or self-care (01) | DRG 720 ==
LOC: EDUNIT# 17:17 → EDBD 17:17 → SED 17:17 → MPC 20:53 → PCC 11-15 04:50
PROVIDERS: ADMIT Specialist; ATTEND Specialist
PROC: 4A033R1 Measurement of Arterial Saturation, Peripheral, Percutaneous Approach (ICD-10-PCS; principal; 2016-11-13)
DX: A41.9 Sepsis, unspecified organism (principal); J96.01 Acute respiratory failure with hypoxia; J10.08 Influenza due to other identified influenza virus with other specified pneumonia; J15.211 Pneumonia due to Methicillin susceptible Staphylococcus aureus; E87.1 Hypo-osmolality and hyponatremia; J44.1 Chronic obstructive pulmonary disease with (acute) exacerbation; Z87.891 Personal history of nicotine dependence; Z88.0 Allergy status to penicillin; R74.8 Abnormal levels of other serum enzymes; Z72.89 Other problems related to lifestyle

== ENCOUNTER 2017-02-22 13:45 | Emergency (ER) | payer OTHER ==
[~2017-02-22] VITALS: Ht 154.9 cm; Wt 54.5 kg
[~2017-02-22 13:45] MED LIST changes: -ACET-171 PO; +ACET1TAB42 PO; -ACET325T51 PO; +ALBU2.5V4 NEB; -ASCO100089 PO; +BENZ100C8 PO; -CHLO25CA10 PO; -ERGO500050 PO; -FOLI-52 PO; +GUAI600T86 PO; +IPRA3AMP NEB; -LORA2TAB PO; -OMEG-38 PO; -ONDA4TAB9 PO; -OXYC5TAB72 PO; -PANT40TA3 PO
[2017-02-22 13:51] VITALS: BP 158/97; PULSE 111; RESP 14; O2SAT 96
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
[2017-02-22 16:35] LABS: BASOPHILS % (AUTO) 0.7 % (0-3); EOSINOPHILS % (AUTO) 0.7 % (0-5); MONOCYTES % (AUTO) 13.7 % (4-12); Mean Corpuscular Hemoglobin 29.6 pg (27.0-35.0); Mean Corpuscular Volume 90.7 fL (81-100); NEUTROPHILS % (AUTO) 37.2 % (40-74); Platelet Count 147 bil/L (150-400)
[2017-02-22 16:55] LABS: Magnesium 1.3 mg/dL (1.6-2.6)
--- NOTE | 2017-02-22 17:30 | DRSVH ---
PROCEDURE: X-RAY THORACIC SPINE, 2 VIEWS INDICATIONS: Acute back pain TECHNIQUE: 2 views of the thoracic spine were acquired. COMPARISON: None. FINDINGS: Bones: No fractures or dislocations. No suspicious bony lesions. 12 pairs of ribs are noted, and ap pear intact where visualized. Mild degenerative change including intervertebral disc space narrowing and endplate sclerosis is present throughout the lumbar spine. Soft tissues: No paravertebral stripe thickening. Surgical clips are present in the gallbladder fos sa. IMPRESSION: 1. Degenerative change. No acute radiographic findings. Dictated by: Miranda Kramer M.D. on 02/22/2017 at 17:28 Approved by: Miranda Kramer M.D. on 02/22/2017 at 17:29
--- NOTE | 2017-02-22 17:32 | DRSVH ---
PROCEDURE: X-RAY LUMBAR SPINE, 2 OR 3 VIEW INDICATIONS: Acute back pain TECHNIQUE: 2 views of the lumbar spine were acquired. COMPARISON: [facility], CR, XR LUMBAR SPINE 2 OR 3VW, 12/24/2015, 11:27. FINDINGS: Bones: 5 [id number] vertebrae are present. There is trace L2 on L3 retrolisthesis, unchanged wi th a study dated 12/24/15. No vertebral body compression fractures. No suspicious bony lesions. Int ervertebral disc space narrowing and osteophytosis is present throughout the lumbar spine most severe at L1-2. Soft tissues: Overlying bowel gas pattern is normal. No suspicious soft tissue calcifications. IMPRESSION: Degenerative change. No acute wedge compression deformities. Dictated by: Miranda Kramer M.D. on 02/22/2017 at 17:29 Approved by: Miranda Kramer M.D. on 02/22/2017 at 17:31
[2017-02-22 18:23] VITALS: BP 158/102; PULSE 112; RESP 20; O2SAT 98
== END 2017-02-22 18:24 | disposition home or self-care (01) ==
LOC: SED 13:45
DX: S39.012A Strain of muscle, fascia and tendon of lower back, initial encounter (principal); I10 Essential (primary) hypertension; X50.0XXA Overexertion from strenuous movement or load, initial encounter; Y93.89 Activity, other specified; Y92.009 Unspecified place in unspecified non-institutional (private) residence as the place of occurrence of the external cause; Y99.8 Other external cause status; K21.9 Gastro-esophageal reflux disease without esophagitis; F17.210 Nicotine dependence, cigarettes, uncomplicated; Z88.0 Allergy status to penicillin
CPT/HCPCS: 72070; 72100; 80053; 81025; 83690; 83735; 85025; 96372; 99284; J1885

== ENCOUNTER 2017-02-22 23:57 | Emergency (ER) | payer OTHER ==
[~2017-02-22] VITALS: Ht 154.9 cm; Wt 54.5 kg
[2017-02-23 00:26] VITALS: BP 166/106; PULSE 95; RESP 24; O2SAT 97
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
[2017-02-23] MEDS ORDERED: LORazepam 0.5 mg Tablet PO ONE (02:10)
[2017-02-23 03:00] VITALS: BP 122/70; PULSE 92; RESP 14; O2SAT 98
[2017-02-23 06:11] VITALS: BP 122/74; PULSE 78; RESP 18; O2SAT 97
== END 2017-02-23 06:14 | disposition home or self-care (01) ==
LOC: SED 23:57
DX: M54.5 Low back pain (principal); X50.0XXA Overexertion from strenuous movement or load, initial encounter; Y92.009 Unspecified place in unspecified non-institutional (private) residence as the place of occurrence of the external cause; Y93.89 Activity, other specified; Y99.8 Other external cause status; I10 Essential (primary) hypertension; K21.9 Gastro-esophageal reflux disease without esophagitis; F17.200 Nicotine dependence, unspecified, uncomplicated; Z88.0 Allergy status to penicillin
CPT/HCPCS: 93005; 96372; 99284; J1885